=== PATIENT | female | born 1940 | race Caucasian/White ===

== ENCOUNTER → 2018-10-16 15:52 | Outpatient (CLI) | payer MEDICARE, OTHER, SELFPAY ==
[2018-10-16 18:45] LABS: ALB/GLOB Ratio 1.2 RATIO (0.9-2.4); AST(SGOT) 16 U/L (15-37); Alanine Aminotransfer ALT/SGPT 19 U/L (13-56); Albumin, Serum 4.1 g/dL (3.2-5.0); Alkaline Phosphatase 57 U/L (45-117); Anion Gap 3 (5-15); BUN 21 mg/dL (7-18); BUN/Creat Ratio 22.6 RATIO (10-20); Calcium,Total 9.2 mg/dL (8.5-10.1); Chloride 104 mmol/L (98-107); Cholesterol 156 mg/dL (200); Creatinine, Serum 0.93 mg/dL (0.55-1.02); EST Glomerular Filtration Rate 62 mL/min (>60); Est Glom Filt Rate - Afr Amer 76 mL/min (>60); Globulin 3.5 g/dL (2.2-4.2); Glucose 99 mg/dL (74-106); High Density Lipoprotein 49 mg/dL; Potassium 4.4 mmol/L (3.5-5.1); Protein, Total 7.6 g/dL (6.4-8.2); Sodium Level 139 mmol/L (136-145); Thyroid Stim Hormone (TSH) 1.17 uIU/mL (0.358-3.74); Triglycerides 237 mg/dL; Very Low Density Lipoprotein 47 mg/dL (5-40)
== END ==
PROVIDERS: Family Provider Family Medicine; PCP Family Medicine; Referring Provider Family Medicine; Visit Provider Family Medicine
DX: I10 Essential (primary) hypertension (principal); E03.9 Hypothyroidism, unspecified
CPT/HCPCS: 36415; 80053; 80061; 84443

== ENCOUNTER 2019-09-12 14:03 | Emergency (ER) | payer MEDICARE, OTHER, SELFPAY ==
[2019-09-12 14:03] VITALS: BP 157/89; PULSE 79; RESP 16; TEMP 36.8; O2SAT 98; BMI 33.3
--- NOTE | 2019-09-12 14:33 | RAD_ITS ---
STUDY: X-RAY - LUMBAR SPINE REASON FOR EXAM: Female, 78 years old. POSTERIOR RIGHT HIP AND LBP S/P FALL DOWN STAIRS LAST NIGHT TECHNIQUE: 3 view(s) of the lumbar spine were obtained. COMPARISON: None FINDINGS: Normal lumbar lordosis. Mild dextroscoliosis of the lumbar spine. There is a normal alignment of the vertebrae. Normal vertebral bodies and endplates. Moderate L5-S1 disc space height narrowing. Normal remaining lumbar disc space heights. Dense vascular calcifications along the abdominal aorta. Right metallic hip arthroplasty. Degenerative osteophytosis of the left hip joint space. RAD/Lumbar Spine 2 or 3 Views IMPRESSION: 1. No acute fracture or acute osseous abnormality of the lumbar spine. 2. Right metallic hip arthroplasty. 3. 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 Electronically Signed: Johnny Her MD at 15:33 EDT , Service support ,
--- NOTE | 2019-09-12 15:05 | RAD_ITS ---
STUDY: X-RAY - PELVIS AND RIGHT HIP REASON FOR EXAM: Female, 78 years old. POSTERIOR RIGHT HIP AND LBP S/P FALL DOWN STAIRS LAST NIGHT TECHNIQUE: 3 views of the pelvis and hip. COMPARISON: November 10, 2012 FINDINGS: There is a normal bowel gas pattern. Normal visualized soft tissue structures. There is diffuse demineralization of the osseous structures. Normal bilateral iliac wings, sacroiliac joints and visualized sacrum. Normal bilateral superior and inferior pubic rami. Normal pubic symphysis. Normal bilateral ischial tuberosities. There is right hip replacement. Alignment is near-anatomic. The appearance is stable. RAD/HIP, UNI W/ Pelvis 2-3 Views IMPRESSION: Stable right hip replacement. No fracture seen. Electronically Signed: Cj Grant MD at 15:32 EDT , Service support ,
--- NOTE | 2019-09-12 16:12 | ED.VISSUMM ---
- ER Visit Summary Date of Service: 09/12/19 Chief Complaint: Fall History of Present Illness: The patient is a 78 F who presents after a fall that occurred last night. Patient states she was going up some steps when she fell and went through the railing. Patient states she fell approximately 4 steps. Patient states she landed on her right hip and low back. Patient states the pain is constant aching but sharp at times. Patient states her pain is worse with ambulation. Patient states she has been using heat and cold with some improvement. Patient denies any radiation of the pain. Patient denies any bowel or bladder changes. Patient denies any saddle anesthesia. Physical Examination: Vital signs are stable. Patient is afebrile. Patient is in no acute distress. Musculoskeletal exam reveals tenderness and spasm of the right lumbar paraspinal muscles. There is some mild midline tenderness. There is also tenderness over the sacroiliac area and posterior iliac crest. There is no bony crepitance or step-off. Range of motion was slightly limited in all motions of the lumbar spine and right hip secondary to pain. Strength is 5/5 bilaterally in the upper and lower extremities. There are no sensory deficits noted. Pedal pulses are equal bilaterally. Abdomen is soft. Bowel sounds are normal. There is no tenderness. Test Results: X-rays of the lumbar spine and right hip were obtained. There is no acute fracture. There are some degenerative changes of the lumbar spine. These were interpreted by the radiologist and myself. Emergency Department Course and Treatment: Patient was advised of her findings. Patient was feeling better on reevaluation. Patient was instructed to use ice to the area. Patient was instructed to take Tylenol or ibuprofen as needed for pain. Patient was instructed to follow-up with her primary care physician in 5 to 7 days. Patient understood and was agreeable with the plan. All questions were answered. Disposition: Discharge home Impression: 1. Right hip contusion 2. Lumbosacral strain This note was generated with [employer] dictation software. It may contain incorrect words, spelling, and punctuation that were not noted in review of the chart prior to signing ED Disposition - Plan for ED Patient: Disposition: Home or Assisted Living Diagnosis: Contusion of right hip, initial encounter, Lumbosacral strain Instructions: ED LUMBAR SPRAIN/STRAIN, ED SOFT TISSUE CONTUSION Referrals: Diallo Ingram MD [Primary Care Provider] - 5-7 Days
[2019-09-12 16:27] VITALS: BP 147/76; PULSE 72; RESP 17; O2SAT 95
== END 2019-09-12 16:27 | disposition home or self-care (01) ==
PROVIDERS: Emergency Provider Emergency Medicine; PCP Family Medicine
DX: S70.01XA Contusion of right hip, initial encounter (principal); S39.012A Strain of muscle, fascia and tendon of lower back, initial encounter; W10.9XXA Fall (on) (from) unspecified stairs and steps, initial encounter; Y93.9 Activity, unspecified; Y99.9 Unspecified external cause status; Z96.641 Presence of right artificial hip joint; Z79.899 Other long term (current) drug therapy
CPT/HCPCS: 72100; 73502; 99282

== ENCOUNTER → 2020-08-19 08:11 | Outpatient (CLI) | payer MEDICARE, OTHER, SELFPAY ==
[2020-08-19 10:50] LABS: Anion Gap 5 (5-15); BUN 22 mg/dL (7-18); Calcium,Total 9.2 mg/dL (8.5-10.1); Chloride 104 mmol/L (98-107); Cholesterol 171 mg/dL (200); Creatinine, Serum 1.05 mg/dL (0.55-1.02); EST Glomerular Filtration Rate 54 mL/min (>60); Est Glom Filt Rate - Afr Amer 65 mL/min (>60); Free T3 1.7 pg/mL (2.18-3.98); Glucose 123 mg/dL (74-106); High Density Lipoprotein 46 mg/dL; Sodium Level 139 mmol/L (136-145); T4 Free Direct 1.05 ng/dL (0.76-1.46); Thyroid Stim Hormone (TSH) 1.39 uIU/mL (0.358-3.74); Triglycerides 266 mg/dL; Very Low Density Lipoprotein 53 mg/dL (5-40)
== END ==
PROVIDERS: PCP Family Medicine; Referring Provider Family Medicine; Visit Provider Family Medicine
DX: I10 Essential (primary) hypertension (principal); E03.9 Hypothyroidism, unspecified
CPT/HCPCS: 36415; 80048; 80061; 84439; 84443; 84481

== ENCOUNTER → 2021-02-20 10:51 | Outpatient (CLI) | payer MEDICARE, OTHER, SELFPAY ==
[2021-02-20 12:57] LABS: Anion Gap 7 (5-15); BUN 20 mg/dL (7-18); BUN/Creat Ratio 21.1 RATIO (10-20); Chloride 103 mmol/L (98-107); Cholesterol 191 mg/dL (200); Creatinine, Serum 0.95 mg/dL (0.55-1.02); EST Glomerular Filtration Rate 61 mL/min (>60); Est Glom Filt Rate - Afr Amer 74 mL/min (>60); Free T3 2.1 pg/mL (2.18-3.98); Glucose 126 mg/dL (74-106); High Density Lipoprotein 49 mg/dL; Potassium 4.6 mmol/L (3.5-5.1); Sodium Level 139 mmol/L (136-145); Thyroid Stim Hormone (TSH) 1.03 uIU/mL (0.358-3.74); Triglycerides 299 mg/dL; Very Low Density Lipoprotein 60 mg/dL (5-40)
== END ==
PROVIDERS: PCP Family Medicine; Referring Provider Family Medicine; Visit Provider Family Medicine
DX: I10 Essential (primary) hypertension (principal); E03.9 Hypothyroidism, unspecified
CPT/HCPCS: 36415; 80048; 80061; 84443; 84481

== ENCOUNTER → 2022-11-22 | Outpatient (CLI) | payer MEDICARE, OTHER, SELFPAY ==
[2022-11-22 12:04] LABS: Anion Gap 6 (5-15); BUN 21 mg/dL (7-18); BUN/Creat Ratio 26.5 RATIO (10-20); Calcium,Total 9.7 mg/dL (8.5-10.1); Chloride 107 mmol/L (98-107); Cholesterol 123 mg/dL (200); Creatinine, Serum 0.79 mg/dL (0.55-1.02); EST Glomerular Filtration Rate 74 mL/min (>60); Est Glom Filt Rate - Afr Amer 90 mL/min (>60); Free T3 2.9 pg/mL (2.18-3.98); Glucose 115 mg/dL (74-106); High Density Lipoprotein 58 mg/dL; Potassium 4.1 mmol/L (3.5-5.1); Sodium Level 140 mmol/L (136-145); Thyroid Stim Hormone (TSH) < 0.01 uIU/mL (0.358-3.74); Triglycerides 67 mg/dL; Very Low Density Lipoprotein 13 mg/dL (5-40)
== END | disposition home or self-care (01) ==
LOC: MFPLAB 08:04
PROVIDERS: PCP Family Medicine; Visit Provider Family Medicine
DX: I10 Essential (primary) hypertension (principal); E03.9 Hypothyroidism, unspecified
CPT/HCPCS: 36415; 80048; 80061; 84439; 84443; 84481

== ENCOUNTER → 2023-07-18 | Outpatient (CLI) | payer MEDICARE, OTHER, SELFPAY ==
[2023-07-18 11:06] LABS: AST(SGOT) 19 U/L (15-37); Alanine Aminotransfer ALT/SGPT 23 U/L (13-56); Albumin, Serum 3.8 g/dL (3.2-5.0); Alkaline Phosphatase 64 U/L (45-117); Anion Gap 3 (5-15); BUN 21 mg/dL (7-18); BUN/Creat Ratio 21.2 RATIO (10-20); Calcium,Total 9.4 mg/dL (8.5-10.1); Chloride 103 mmol/L (98-107); Cholesterol 150 mg/dL (200); Creatinine, Serum 0.99 mg/dL (0.55-1.02); EST Glomerular Filtration Rate 57 mL/min (>60); Est Glom Filt Rate - Afr Amer 69 mL/min (>60); Free T3 1.8 pg/mL (2.18-3.98); Globulin 3.9 g/dL (2.2-4.2); Glucose 109 mg/dL (74-106); High Density Lipoprotein 61 mg/dL; Potassium 4.3 mmol/L (3.5-5.1); Protein, Total 7.7 g/dL (6.4-8.2); Sodium Level 137 mmol/L (136-145); T4 Free Direct 0.84 ng/dL (0.76-1.46); Thyroid Stim Hormone (TSH) 4.33 uIU/mL (0.358-3.74); Triglycerides 189 mg/dL; Very Low Density Lipoprotein 38 mg/dL (5-40)
== END | disposition home or self-care (01) ==
LOC: MFPLAB 08:52
PROVIDERS: PCP Family Medicine; Visit Provider Family Medicine
DX: E03.9 Hypothyroidism, unspecified (principal); I10 Essential (primary) hypertension
CPT/HCPCS: 36415; 80053; 80061; 84439; 84443; 84481

== ENCOUNTER → 2023-10-17 | Outpatient (CLI) | payer MEDICARE, OTHER, SELFPAY ==
--- NOTE | 2023-10-17 10:42 | RAD_ITS ---
STUDY: X-RAY - PELVIS AND LEFT HIP REASON FOR EXAM: Female, 82 years old. PAIN TECHNIQUE: 3 views of the pelvis and left hip. COMPARISON: None. FINDINGS: There is a non-specific bowel gas pattern. Normal visualized soft tissue structures. Normal bilateral iliac wings, sacroiliac joints and visualized sacrum. Normal bilateral superior and inferior pubic rami. There is mild pubic symphysis arthrosis. Normal bilateral ischial tuberosities. There are osteoarthritic changes of the left femoral head with marginal osteophyte formation. There is mild osteoarthritic spur formation of the left acetabular rim. Intact left hip joint. There is no demonstrated acute fracture. There is a right hip arthroplasty, with no periprosthetic fracture. RAD/HIP, UNI W/ Pelvis 2-3 Views IMPRESSION: Degenerative arthrosis of the left hip joint. No demonstrated acute fracture. Right hip arthroplasty, with no periprosthetic fracture. Electronically Signed: Bulmaro Panchal MD at 15:30 EDT ,
--- NOTE | 2023-10-17 10:43 | RAD_ITS ---
STUDY: X-RAY - LEFT KNEE REASON FOR EXAM: Female, 82 years old. PAIN TECHNIQUE: 4 views of the left knee. COMPARISON: None. FINDINGS: Normal visualized distal femur. Normal visualized proximal tibia and fibula. Normal proximal tibiofibular articulation. There is no demonstrated fracture. Normal medial femorotibial compartment. Normal lateral femorotibial compartment. Normal patellofemoral articulation. There is a tiny joint effusion. The soft tissue structures are unremarkable. RAD/Knee 4 or More Views IMPRESSION: Tiny joint effusion. No demonstrated fracture. Electronically Signed: Bulmaro Panchal MD at 14:12 EDT ,
== END | disposition home or self-care (01) ==
PROVIDERS: PCP Family Medicine; Referring Provider Family Medicine; Visit Provider Family Medicine
DX: M25.552 Pain in left hip (principal); M25.562 Pain in left knee
CPT/HCPCS: 73502; 73564

== ENCOUNTER → 2024-02-19 | Outpatient (CLI) | payer MEDICARE, OTHER, SELFPAY ==
[2024-02-19 13:12] LABS: Anion Gap 5 (5-15); BUN 20 mg/dL (7-18); Calcium,Total 9.5 mg/dL (8.5-10.1); Chloride 104 mmol/L (98-107); Cholesterol 156 mg/dL (200); EST Glomerular Filtration Rate 57 mL/min (>60); Est Glom Filt Rate - Afr Amer 68 mL/min (>60); Glucose 111 mg/dL (74-106); High Density Lipoprotein 52 mg/dL; Potassium 4.2 mmol/L (3.5-5.1); Sodium Level 139 mmol/L (136-145); T4 Free Direct 0.96 ng/dL (0.76-1.46); Triglycerides 251 mg/dL; Very Low Density Lipoprotein 50 mg/dL (5-40)
== END | disposition home or self-care (01) ==
LOC: MFPLAB 10:57
PROVIDERS: PCP Family Medicine; Visit Provider Family Medicine
DX: E03.9 Hypothyroidism, unspecified (principal); I10 Essential (primary) hypertension
CPT/HCPCS: 36415; 80048; 80061; 84439; 84443; 84481

== ENCOUNTER 2024-03-25 13:18 | Emergency (ER) | payer MEDICARE, OTHER, SELFPAY ==
[2024-03-25 13:19] VITALS: BP 113/57; PULSE 67; RESP 16; TEMP 36.4; O2SAT 94; BMI 33.0
--- NOTE | 2024-03-25 13:26 | EKG12_ITS ---
Test Reason : Blood Pressure : / mmHG Vent. Rate : 061 BPM Atrial Rate : 061 BPM P-R Int : 178 ms QRS Dur : 156 ms QT Int : 464 ms P-R-T Axes : 007 -81 -10 degrees QTc Int : 467 ms Normal sinus rhythm Left axis deviation Right bundle branch block Abnormal ECG Confirmed by Juno Zaragoza ([id number]), shoe caser ROB PARKER ([id number]) on 03/27/2024 1:29:04 PM Referred By: Confirmed By:Juno Zaragoza
--- NOTE | 2024-03-25 13:36 | RAD_ITS ---
INDICATION: Chest/epigastric pain EXAMINATION/TECHNIQUE: X-RAY - XR Chest 2 Views COMPARISON: Prior study dated: FINDINGS: LINES/DEVICES: None. LUNGS: Mild linear atelectasis or scarring in the lingula. No focal consolidation is seen. No evidence of pleural effusions. MEDIASTINUM AND CARDIOVASCULAR STRUCTURES: Normal cardiac silhouette. Atherosclerotic calcifications and tortuosity of the thoracic aorta. BONES AND SOFT TISSUES: Degenerative changes of the thoracic spine. RAD/Chest PA and Lateral IMPRESSION: No radiographic evidence of acute cardiopulmonary disease. Electronically Signed: Layton Jaimes MD at 14:03 EDT ,
[2024-03-25 13:57] LABS: Troponin-I HS (w/2H Reflex) 6 pg/mL (3.0-54.0)
[2024-03-25 14:19] VITALS: BP 109/54; PULSE 61; RESP 20; O2SAT 95
--- NOTE | 2024-03-25 14:36 | EDS_ITS ---
HPI History of Present Illness Chief Complaint: Chest Pain Detail of Chief Complaint: Reported xiphoid/epigastric pain while eating Informant: EMS Limited: dementia Onset/Context/Timing Onset: - (Patient was unaware that she had pain. She states they put me in a vehicle and sent me here.) Activity at onset: sudden Timing: Intermittent Quality: Positive for - (Pain per EMS) Location: - (Subxiphoid region) Current Severity: Gone Maximum Severity: Severe Worsened By: Nothing Relieved By: Nothing Associated Symptoms: Positive for Diaphoresis; Negative for Nausea, Vomiting, Dyspnea, Cough, Fever, Lightheadedness, Acid Reflux or Palpitations Narrative Narrative: Patient is an 83-year-old woman with past medical history of hypertension and hypercholesterolemia who presents with severe subxiphoid discomfort. She was diaphoretic. She appeared distressed when paramedics arrived. The pain resolved on its own. Patient has significant dementia that she is unable to contribute with regards to history. Prior Similar Symptoms: - (Unknown) Recent Illness/Hospitalization: No CVD Risk Factors: Positive for Hypertension and Hypercholesterolemia; Negative for Diabetes or Smoking PE Risk Factors: Positive for - (Unknown) TAD Risk Factors: Positive for Hypertension [facility] Medical History (Updated 03/25/24 @ 16:[address] Joo Borden MD) Dementia Home Medications ?Medication ?Instructions ?Recorded ?Last Taken ?Type amlodipine 5 mg tablet 5 mg PO DAILY 09/12/19 03/25/24 History lovastatin 20 mg tablet 20 mg PO DAILY 09/12/19 03/24/24 History dicyclomine 20 mg tablet 20 mg PO TID 03/25/24 03/25/24 History donepezil 10 mg tablet 20 mg PO DAILY 03/25/24 03/24/24 History levothyroxine 75 mcg tablet 75 mcg PO DAILY 03/25/24 03/24/24 History meloxicam 15 mg tablet 15 mg PO DAILY 03/25/24 03/24/24 History memantine 5 mg tablet 5 mg PO BID 03/25/24 03/24/24 History Allergy/AdvReac Type Severity Reaction Status Date / Time Sulfa (Sulfonamide Allergy Rash Verified 09/12/19 14:04 Antibiotics) adhesive tape AdvReac Rash Verified 09/12/19 14:04 Social History Smoking Status: Never smoker ROS ROS ED Review of Systems ROS Unobtainable: due to mental status Cardiovascular Cardiovascular: Reports as per HPI EXAM Physical Exam Const Vital Signs: 03/25/24 13:19 03/25/24 13:23 03/25/24 14:19 Temperature 97.6 F L Temperature Source Temporal Pulse Rate 67 61 Respiratory Rate 16 20 H Respiratory Effort Normal Blood Pressure 113/57 L 109/54 L Blood Pressure Mean 75 72 Pulse Ox 94 95 Oxygen Delivery Method Room Air 03/25/24 15:00 Temperature Temperature Source Pulse Rate 73 Respiratory Rate 20 H Respiratory Effort Blood Pressure 117/61 Blood Pressure Mean 79 Pulse Ox 96 Oxygen Delivery Method Room Air Positive well nourished, well developed and obese General Appearance ED: well developed and NAD; Negative for pallor Nutritional Appearance: obese HEENT Reports TM's clear and moist mucous membranes normocephalic Tympanic Membrane ED: Yes TM's clear Eyes PERRL and EOMs intact bilaterally Neck no lymphadenopathy, supple and no JVD Chest Wall inspection of chest normal and palpation of chest normal Resp normal respiratory effort and clear to auscultation bilaterally Cardio regular rate, regular rhythm, S1 normal heart sound, S2 normal heart sound and no murmurs GI normal to inspection, nondistended, normoactive bowel sounds, soft to palpation, non-tender, non-distended and no masses; Negative for hepatosplenomegaly Back/Spine no CVA tenderness and no thoracic nor lumbar tenderness Extremity normal to inspection General Extremety ED: Negative for pulses abnormal or tenderness General Extremity: Negative for pulses abnormal Neuro No oriented x3, CN's II-XII intact bilaterally and no sensory deficits noted Sensorium / Orientation: awake Psych mental status grossly normal Skin no rashes or lesions noted and no wounds General Skin Exam: Negative for jaundice or pallor MDM MDM MDM Narrative Medical decision making narrative: Differential diagnosis cardiac versus noncardiac. To rule out noncardiac will obtain EKG, troponin with 2-hour troponin. Suspect this is due to esophageal pathology since this occurred while eating. Since she is pain-free at this time no intervention was undertaken. Lab Data Attestation: I reviewed the patient's lab results. Lab results narrative: First troponin is normal, 6. Labs: Laboratory Results - last 24 hr 03/25/24 03/25/24 13:31 15:39 Troponin I High Sens 6 5 2-hour troponin is 5 with a delta of -1. Plan is to discharge to home. Radiography Chest X-Ray - ED: 2 View and Read by ED Physician (Independently read and interpreted by me as negative for any acute pathology. Cardiac silhouette size normal. Lung parenchyma normal. Hilum normal.) Diagnostic Testing: Clinical Impression(s) from Imaging Studies Chest X-Ray 03/25/24 13:36 IMPRESSION: No radiographic evidence of acute cardiopulmonary disease. Electronically Signed: Layton Jaimes MD at 14:03 EDT , EKG Initial EKG: Interpretation: Sinus Rhythm (Rate is 61. Eugene to the left. Parables 170 ms. Cures duration is prolonged 156 ms and QRS morphology consistent with right bundle branch block. QT duration 464 ms.) Discharge Plan Triage Chief Complaint: Chest Pain ED Provider: Joo Borden Dx/Rx/DC Orders Clinical Impression: Acute epigastric pain, Dementia, History of hypothyroidism, History of hypertension Instructions: ED Epigastric Pain Uncertain Cause Prescriptions: No Action amlodipine 5 MG tablet 5 mg PO DAILY lovastatin 20 MG tablet 20 mg PO DAILY donepezil 10 mg tablet 20 mg PO DAILY dicyclomine 20 mg tablet 20 mg PO TID meloxicam 15 mg tablet 15 mg PO DAILY levothyroxine 75 mcg tablet 75 mcg PO DAILY memantine 5 mg tablet 5 mg PO BID Primary Care Provider: Diallo Ingram Referrals: Diallo Ingram MD [Primary Care Provider] - As Needed Print Language: Mauritanian Disposition Disposition: Home, Self Care
[2024-03-25 15:00] VITALS: BP 117/61; PULSE 73; RESP 20; O2SAT 96
[2024-03-25 15:35] LABS: Reflex Troponin-HS? (from REC) Y
[2024-03-25 16:00] VITALS: BP 125/68
[2024-03-25 16:00] LABS: Troponin-I HS 5 pg/mL (3.0-54.0)
--- NOTE | 2024-03-25 16:10 | ED.RN ---
Dr. Borden bedside talking to family and patient
[2024-03-25 16:11] VITALS: BP 125/68; PULSE 73; RESP 20; TEMP 36.4; O2SAT 96
== END 2024-03-25 16:18 | disposition home or self-care (01) ==
PROVIDERS: Emergency Provider Emergency Medicine; PCP Family Medicine; Visit Provider Emergency Medicine
DX: R10.13 Epigastric pain (principal); F03.90 Unspecified dementia, unspecified severity, without behavioral disturbance, psychotic disturbance, mood disturbance, and anxiety; I10 Essential (primary) hypertension; E78.00 Pure hypercholesterolemia, unspecified; Z79.890 Hormone replacement therapy; Z79.899 Other long term (current) drug therapy
CPT/HCPCS: 71046; 84484; 93005; 99284; A4216

== ENCOUNTER → 2024-03-27 | Outpatient (CLI) | payer MEDICARE, OTHER, SELFPAY ==
[2024-03-27 11:30] LABS: ALB/GLOB Ratio 0.9 RATIO (0.9-2.4); AST(SGOT) 21 U/L (15-37); Alanine Aminotransfer ALT/SGPT 19 U/L (13-56); Albumin, Serum 3.5 g/dL (3.2-5.0); Alkaline Phosphatase 68 U/L (45-117); Anion Gap 3 (5-15); BUN 19 mg/dL (7-18); Calcium,Total 9.5 mg/dL (8.5-10.1); Chloride 106 mmol/L (98-107); EST Glomerular Filtration Rate 57 mL/min (>60); Est Glom Filt Rate - Afr Amer 68 mL/min (>60); Glucose 111 mg/dL (74-106); Potassium 3.9 mmol/L (3.5-5.1); Protein, Total 7.5 g/dL (6.4-8.2); Sodium Level 139 mmol/L (136-145)
== END | disposition home or self-care (01) ==
LOC: MTLAB 07:37
PROVIDERS: PCP Family Medicine; Referring Provider Family Medicine; Visit Provider Family Medicine
DX: R63.0 Anorexia (principal)
CPT/HCPCS: 36415; 80053

== ENCOUNTER → 2024-08-24 | Outpatient (CLI) | payer MEDICARE, OTHER, SELFPAY ==
[2024-08-24 13:04] LABS: ALB/GLOB Ratio 1.2 RATIO (0.9-2.4); AST(SGOT) 22 U/L (<=31); Alanine Aminotransfer ALT/SGPT 13 U/L (<=34); Albumin, Serum 4.2 g/dL (3.4-4.8); Alkaline Phosphatase 80 U/L (35-104); Anion Gap 10 (5-15); BUN 21 mg/dL (4-19); BUN/Creat Ratio 22.2 RATIO (10-20); Calcium,Total 9.7 mg/dL (7.6-11.0); Carbon Dioxide 27.7 mmol/L (21.0-32.0); Chloride 104 mmol/L (98-108); Creatinine, Serum 0.95 mg/dL (0.70-1.20); EST Glomerular Filtration Rate 60 (>60); Free T3 2.4 pg/mL (2.18-3.98); Globulin 3.4 g/dL (2.2-4.2); Glucose 125 mg/dL (70-99); Protein, Total 7.5 g/dL (5.9-8.4); Sodium Level 141 mmol/L (133-145); Total Bilirubin 0.39 mg/dL (0.00-1.30)
[2024-08-24 18:32] LABS: Cholesterol 184 mg/dL (<=200); High Density Lipoprotein 61 mg/dL; Low Density Lipoprotein Calc. 90 mg/dL; Triglycerides 164 mg/dL; Very Low Density Lipoprotein 33 mg/dL (5-40); cholesterol:hdl ratio screen 3.03
== END | disposition home or self-care (01) ==
LOC: MTLAB 07:18
PROVIDERS: PCP Family Medicine; Referring Provider Family Medicine; Visit Provider Family Medicine
DX: I10 Essential (primary) hypertension (principal); E03.9 Hypothyroidism, unspecified
CPT/HCPCS: 36415; 80053; 80061; 84439; 84443; 84481

== ENCOUNTER → 2024-12-07 | Outpatient (REF) | payer MEDICARE, OTHER, SELFPAY ==
[2024-12-08 09:50] LABS: Bacteria 0 SEEN /hpf (None Seen); Mucous, Urine 0 SEEN /hpf (<or=2+)
[2024-12-08 10:54] LABS: Color, Urine Yellow (Yellow); Glucose, Dipstick Normal (Normal); Ketone-Dipstick 5 mg/dl (Negative); Leukocyte Esterase-Dipstick 500 /ul (Negative); Nitrite-Dipstick Negative (Negative); Occult Blood-Urine 10 /ul (Negative); Protein-Dipstick 15 mg/dl (Negative); Urine Bilirubin Dipstick Negative (Negative); Urine Clarity Sl. Cloudy (Clear); Urine Urobilinogen Normal (Normal)
[2024-12-08 12:24] LABS: Red Blood Cells-Urine 0-5 SEEN /hpf (0-5); Squamous Epithelial Cells - UA 0-5 SEEN /hpf (5-10); White Blood Cells 5-10 SEEN /hpf (0-5)
== END ==
LOC: OLS.BROOKB 02:00
PROVIDERS: PCP Family Medicine; Visit Provider Family Medicine
DX: N39.0 Urinary tract infection, site not specified (principal)
CPT/HCPCS: 81001; 87086

== ENCOUNTER 2024-12-26 07:21 | Emergency (ER) | payer MEDICARE, OTHER, SELFPAY ==
[2024-12-26] VITALS (11 sets, daily range): BP systolic 114–149; BP diastolic 08–111; PULSE 75–91; RESP 16–24; TEMP 36.2–37; O2SAT 94–100; BMI 30.2
--- NOTE | 2024-12-26 07:28 | CT_ITS ---
EXAM: BRAIN/HEAD WITHOUT CONTRAST CLINICAL HISTORY: 84 y/o F with HEAD TRAUMA. COMPARISON: None. TECHNIQUE: Routine CT imaging of the head without IV contrast. Additional multiplanar reformats were obtained. Dose reduction techniques were used including intermediate exposure control (AEC),iterative reconstruction technique, and/or mA and/or KV dose adjustments based on patient's size. FINDINGS: Visualization is limited by motion artifact. Moderate generalized cerebral volume loss with concordant prominence of the ventricles and subarachnoid spaces. Moderate patchy supratentorial white matter hypodensities. No acute intracranial hemorrhage or herniation. The magaña-white matter interfaces are otherwise maintained. The orbits, visualized paranasal sinuses and mastoids are unremarkable. No obvious acute calvarial fracture. Large hematoma/laceration along the right superolateral orbital wall. CT/Brain/Head without Contrast IMPRESSION: 1. No acute intracranial finding. 2. Large hematoma/laceration along the right superolateral orbital wall. Reading Location: [id number]
--- NOTE | 2024-12-26 07:28 | ED.VIS.FALL ---
HPI HPI - Fall History of Present Illness Chief Complaint: Fall Informant: patient Occured/Mechanism Occurred: Today Usually ambulates: Without assistance Pain/Injury Pain Location: head Narrative Narrative: 84-year-old female history of dementia, hypertension. Currently resides in [facility] with the memory unit. Patient is a very limited informant due to her dementia. She basically says ow. Reportedly patient was found in the hallway on the floor at the extended-care facility. With contusion to her right forehead and upper eyelid and brow. They believe she fell sometime this morning. She is reportedly not on blood thinners. Prior similar symptoms: No Recent Illness/Hospitalization: No PFSH PFSH Medical History Anorexia GERD (gastroesophageal reflux disease) HTN (hypertension) Hypothyroidism Alzheimer disease Dementia Home Medications ?Medication ?Instructions ?Recorded ?Last Taken ?Type amlodipine 5 mg tablet 5 mg PO DAILY 09/12/19 03/25/24 History lovastatin 20 mg tablet 20 mg PO DAILY 09/12/19 03/24/24 History dicyclomine 20 mg tablet 20 mg PO BID 03/25/24 03/25/24 History levothyroxine 75 mcg tablet 75 mcg PO DAILY 03/25/24 03/24/24 History meloxicam 15 mg tablet 15 mg PO DAILY 03/25/24 03/24/24 History mirtazapine 15 mg tablet 15 mg PO QHS 12/26/24 Unknown History omeprazole 20 mg capsule,delayed 20 mg PO DAILY 12/26/24 Unknown History release polyethylene glycol 3350 17 17 g PO QHS 12/26/24 Unknown History gram/dose oral powder Allergy/AdvReac Type Severity Reaction Status Date / Time Sulfa (Sulfonamide Allergy Rash Verified 12/26/24 07:28 Antibiotics) adhesive tape AdvReac Rash Verified 12/26/24 07:28 Social History Smoking Status: Never smoker ROS ROS ED ROS Narrative Unknown due to patient's dementia. Review of Systems ROS Unobtainable: due to mental condition EXAM Physical Exam Narrative Exam Narrative: 84-year-old female sitting upright in bed. Vital signs are stable afebrile. Currently there is no family present. H EENT exam pupils round reactive light. Her right forehead eyebrow upper lid there is swelling from a contusion there is dried blood but does not appear to be a laceration needs to be repaired. There is no active bleeding. Pupils are equal and symmetrical 2 to 3 mm. Dentition intact. There is no other signs of trauma to her face or scalp. C-spine and neck are nontender. Lungs are clear. Heart regular rhythm rate about 80 no murmur. Chest wall and ribs are nontender. There is no signs of trauma. No bruising or crepitance. Abdomen is soft and nontender. Pelvic girdle is intact. There is no shortening or rotation to either hip. Upper extremities are nontender no deformity. She does not do hhas strength. Lower extremities are nontender with no deformity. She does do dorsi and plantarflexion. Neurologically she is awake. She will open her eyes. She will follow limited commands. She is a very limited informant. There does not appear to be any focal motor deficits. Const Vital Signs: 12/26/24 07:22 12/26/24 08:21 12/26/24 09:00 Temperature 97.2 F L Temperature Source Axillary Pulse Rate 84 84 86 Respiratory Rate 24 H 16 Blood Pressure 148/74 H 149/88 H 127/98 H Blood Pressure Mean 98 108 107 Pulse Ox 100 98 Oxygen Delivery Method Room Air Room Air 12/26/24 10:00 12/26/24 11:00 Temperature Temperature Source Pulse Rate 75 79 Respiratory Rate 17 Blood Pressure 119/08 L Blood Pressure Mean 45 Pulse Ox 99 Oxygen Delivery Method Room Air Positive well nourished and well developed; Negative for cachectic, contractures or unkempt General Appearance ED: well developed and NAD; Negative for unkempt, cachectic or contractures Nutritional Appearance: Negative for cachectic HEENT Reports normocephalic trauma, contusion, hematoma and tenderness Eyes PERRL and EOMs intact bilaterally General Eye ED: Negative for pale conjunctiva or scleral icterus Neck full ROM and no lymphadenopathy General: Negative for tenderness Chest Wall inspection of chest normal and palpation of chest normal Resp normal respiratory effort, no retractions and clear to auscultation bilaterally Cardio regular rate, regular rhythm, S1 normal heart sound, S2 normal heart sound and no murmurs GI non-tender, non-distended and no masses Inspection: Negative for abdominal distention Auscultation: normoactive bowel sounds Palpation: soft; Negative for guarding or rebound tenderness present Back/Spine no CVA tenderness General Back: Negative for CVA tenderness Cervical Spine: Negative for cervical spine tenderness Lumbar Spine / Lower Back: Negative for lumbar spinal tenderness Neuro No oriented x3, CN's II-XII intact bilaterally, moves all extremities and no focal motor deficits Neuro Narrative: History of dementia. Sensorium / Orientation: alert and confused Psych mental status grossly normal Appearance: Negative for unkempt Skin Skin Narrative: Contusion right forehead involving the eyebrow and upper lid. Dried blood but no significant laceration needs repaired. Lesions: no lesions Rashes: no rashes MDM MDM MDM Narrative Medical decision making narrative: 84-year-old female fell is a significant head injury. CT will be obtained. My understanding is she is DNR comfort care so even if there is a bleed and no believe he will be any intervention. Going for diagnostic purposes. Wound to be cleaned and dressed. Repeat exam patient doing well at 10:50 PM. There are 2 gentleman at bedside or family members they wanted me to check her right shoulder and right hip and obtain x-rays to make sure they were not fractured clinically I do not think they are by happy to get the x-rays. Another family member also requested we do a urinalysis. History & Record Review Discussion w/independent historian: Patient Lab Data Attestation: I reviewed the patient's lab results. Lab results narrative: UA shows no nitrites. 10-25 white cells but no bacteria. No red cells. Will be sent for culture but not treated. Right hip x-ray shows a prosthetic hip possibly a superior pubic rami fracture might be old. I do not see it on prior films. Her prior hip prosthesis was done due to degenerative arthritis not a fracture. Right shoulder x-ray shows a humeral head fracture. I went over both films with the family. Patient is DNR. They do not want any aggressive measures due to her severe dementia. Labs: Laboratory Results - last 24 hr 12/26/24 11:13 Urine Color Yellow Urine Clarity Clear Urine pH 7.0 Ur Specific [place] 1.010 Urine Protein 15 H Urine Glucose (UA) Normal Urine Ketones 50 H Urine Occult Blood 10 H Urine Nitrite Negative Urine Bilirubin Negative Urine Urobilinogen Normal Ur Leukocyte Esterase 500 H Urine RBC 0-5 SEEN Urine WBC 10-25 SEEN Ur Squamous Epith Cells 0-5 SEEN Urine Bacteria 0 SEEN Urine Mucus 0 SEEN Radiography Diagnostic Testing: Clinical Impression(s) from Imaging Studies Brain CT 12/26/24 07:28 IMPRESSION: 1. No acute intracranial finding. 2. Large hematoma/laceration along the right superolateral orbital wall. Reading Location: [facility] Hip/Pelvis X-Ray 12/26/24 10:52 IMPRESSION: The right prosthetic hip device appears to be in satisfactory position without evidence of fracture or loosening. No acute fractures or dislocations are seen. Degenerative changes lower lumbar spine. Arthritic changes of the pubic symphysis. 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 Reading Location: [facility] Shoulder X-Ray 12/26/24 10:52 IMPRESSION: Comminuted displaced fracture of the right humeral head/ neck region as described above. 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 Reading Location: [facility] Right shoulder x-ray shows an acute right humeral head fracture. 2 views interpreted by myself. Right hip x-ray 3 views prosthetic right hip. Questionable superior pubic ramus fracture versus chronic changes. Procedures Lacerations Right forehead laceration repair with Dermabond.: Length: 0.5 in Depth: Skin Shape: Linear Laceration repair: Dermabond Comment: Right forehead eyebrow eyelid abrasion laceration. Dermabond to help with stop bleeding. Did not need suture repair there is no gaping. Discharge Plan Triage Chief Complaint: Fall ED Provider: Shawn Blackmon Dx/Rx/DC Orders Clinical Impression: Fall, CHI (closed head injury), Forehead laceration, Closed fracture of head of right humerus, Closed fracture of right superior pubic ramus, Dementia, DNR (do not resuscitate) Instructions: ED Head Injury (Adult), ED Fracture, Shoulder Prescriptions: No Action amlodipine 5 MG tablet 5 mg PO DAILY lovastatin 20 MG tablet 20 mg PO DAILY dicyclomine 20 mg tablet 20 mg PO BID meloxicam 15 mg tablet 15 mg PO DAILY levothyroxine 75 mcg tablet 75 mcg PO DAILY polyethylene glycol 3350 17 gram/dose powder 17 g PO QHS omeprazole 20 mg capsule,delayed release(DR/EC) 20 mg PO DAILY mirtazapine 15 mg tablet 15 mg PO QHS Primary Care Provider: Diallo Ingram Referrals: Diallo Ingram MD [Primary Care Provider] - 3-5 Days Activity Restrictions/Additional Instructions: Ice to the forehead contusion and swelling. There was a mild laceration to her right eyebrow area. That was Dermabond glued. Tylenol for any pain. Right humeral head fracture. Sling. Possible right superior pubic rami fracture. No treatment. Follow-up with Dr. Diallo Ingram. Print Language: Mauritian Disposition Disposition: Home, Self Care
--- OUTSIDE RECORDS SUMMARY | 2024-12-26 07:48 | XMS RPT_ITS | CCD ---
Author Organization [facility] Care Team Providers Care Test Center Manager Name Role Phone Nataly BALDERRAMA, Dr. Landrum Primary Care Provider Nataly BALDERRAMA, Dr. Landrum Attending Provider [phone] Nataly BALDERRAMA, Dr. Landrum Referring Provider Diallo Ingram Attending Unavailable Nataly, Diallo Primary Care Unavailable Diallo Ingram Referring Unavailable Diallo Ingram Primary Care Unavailable Borden, Joo Attending Unavailable Ingram Diallo FERNÁNDEZ Attending Unavailable Ingram, Diallo Primary Care Unavailable Nataly, Diallo Attending Unavailable Diallo Ingram Primary Care Unavailable Diallo Ingram Attending Unavailable Ingram, Diallo Primary Care Unavailable Diallo Ingram Referring Unavailable Allergies Allergy Classification Reported Allergen(s) Allergy Type Date of Onset Reaction(s) Facility (4 sources) Adhesive Tape; Translations: [adhesive tape] Propensity to adverse reactions 0 [facility] (3 sources) Sulfonamides (Antibiotic) Allergy to substance 0 [facility] (1 source) Sulfonamides (Antibiotic) Drug allergy (disorder) 0 [facility] Repository Medications Current Medications Medication Drug Class(es) Dates Sig (Normalized) Sig (Original) amLODIPine 5 mg oral tablet (3 sources) Dihydropyridine Calcium Channel Tayler Start: 09-12-2019 take 1 tablet by mouth once daily Amlodipine 5 MG tablet Active 5 mg PO DAILY September 12, 2019 12:00am dicyclomine hydrochloride 20 mg oral tablet (1 source) Anticholinergic Start: 03-25-2024 take 1 tablet by mouth three times daily Dicyclomine 20 mg tablet Active 20 mg PO THREE TIMES A DAY March 25, 2024 12:00am donepezil hydrochloride 10 mg oral tablet (1 source) Start: 03-25-2024 take 2 tablets by mouth once daily Donepezil 10 mg tablet Active 20 mg PO DAILY March 25, 2024 12:00am levothyroxine sodium 0.075 mg oral tablet (4 sources) l-Thyroxine Start: 03-25-2024 take 1 tablet by mouth once daily Levothyroxine 75 mcg tablet Active 75 ug PO DAILY March 25, 2024 12:00am Start: 09-12-2019 End: 03-25-2024 take 1 tablet by mouth once daily Levothyroxine 88 MCG tablet Discontinued 88 ug PO DAILY September 12, 2019 12:00am March 25, 2024 1:34pm lovastatin 20 mg oral tablet (3 sources) HMG-CoA Reductase Inhibitor Start: 09-12-2019 take 1 tablet by mouth once daily Lovastatin 20 MG tablet Active 20 mg PO DAILY September 12, 2019 12:00am meloxicam 15 mg oral tablet (1 source) Nonsteroidal Anti-inflammatory Drug Start: 03-25-2024 take 1 tablet by mouth once daily Meloxicam 15 mg tablet Active 15 mg PO DAILY March 25, 2024 12:00am memantine hydrochloride 5 mg oral tablet (1 source) O-ktgpmo-A-aspartat e Receptor Antagonist Start: 03-25-2024 take 1 tablet by mouth twice daily Memantine 5 mg tablet Active 5 mg PO TWICE A DAY March 25, 2024 12:00am Completed/Discontinued Medications Medication Drug Class(es) Dates Sig (Normalized) Sig (Original) benazepril hydrochloride 20 mg / hydroCHLOROthiazide 12.5 mg oral tablet (3 sources) Thiazide Diuretic, Angiotensin Converting Enzyme Inhibitor Start: 09-12-2019 End: 03-25-2024 Benazepril-Hydroc hlorothiazide 1 EACH tablet Discontinued 1 NMA PO DAILY September 12, 2019 12:00am March 25, 2024 1:32pm Start: 09-12-2019 Benazepril-Hyd rochlorothiazide Active 1 EACH PO DAILY September 11, 2019 11:00pm Problems Active Problems Problem Classification Problem Date Documented Da te Episodic/Chronic Abdominal pain (1 source) Epigastric pain; Translations: [Epigastric pain] 04-02-2024 Episodic Delirium, dementia, and amnestic and other cognitive disorders (1 source) Dementia; Translations: [Unspecified dementia without behavioral disturbance] 04-02-2024 Chronic Essential hypertension (1 source) Essential (primary) hypertension; Translations: [Essential (primary) hypertension] Onset: 08-29-2024 Chronic Other circulatory disease (1 source) H/O: hypertension; Translations: [Personal history of other diseases of the circulatory system] 04-02-2024 Episodic Other nutritional; endocrine; and metabolic disorders (1 source) H/O: hypothyroidism; Translations: [Personal history of other endocrine, nutritional and metabolic disease] 04-02-2024 Episodic Sprains and strains (3 sources) Lumbosacral strain; Translations: [Strain of muscle, fascia and tendon of lower back, initial encounter] 09-13-2019 Episodic Superficial injury; contusion (3 sources) Contusion of hip; Translations: [Contusion of right hip, initial encounter] 09-13-2019 Episodic Thyroid disorders (1 source) Hypothyroidism, unspecified; Translations: [Hypothyroidism, unspecified] Onset: 03-12-2024 Chronic Past or Other Problems Problem Classification Problem Date Documented Da te Episodic/Chronic Nonspecific chest pain (1 source) Chest pain, unspecified; Translations: [Chest pain, unspecified] Onset: 04-17-2024 Episodic Other nutritional; endocrine; and metabolic disorders (1 source) Anorexia; Translations: [Anorexia] Onset: 04-23-2024 Episodic Results Test Name Value Interpretation Reference Range Facility Anion gap in Serum or Plasma Ordered By: Diallo Ingram on 08-24-2024 Anion gap [Moles/Vol] 10 mmol/L - [facility] BUN/creatinine ratioOrdered By: Diallo Ingram on 08-24-2024 Urea nitrogen/Creatinine [Mass ratio] 22.2 mg/mg High 10- [facility] Bilirubin, totalOrdered By: Diallo Ingram on 08-24-2024 Bilirubin [Mass/Vol] 0.39 mg/dL 0.00-1.30 [facility] Calculated very low density lipoprotein (VLDL) cholesterol measurementOrdered By: Diallo Ingram on 08-24-2024 VLDL Cholesterol 33 mg/dL - [facility] Carbon dioxide, total [Moles /volume] in Central venous bloodOrdered By: Diallo Ingram on 08-24-2024 CO2 [Moles/Vol] 27.7 mmol/L 21.0-32.0 [facility] Chloride assayOrdered By: Matthew Ingram on 08-24-2024 Chloride [Moles/Vol] 104 mmol/L 98-108 [facility] Comprehensive Metabolic Prof ilon 08-24-2024 Albumin [Mass/Vol] 4.2 g/dL Normal 3.4-4.8 [facility] Comment on above: Performed By: #### L 500.4100, L501.59454, L501.9520, L506.0400, L500.4050 #### [facility] [address] [place], [address] Albumin/Globulin [Mass ratio] 1.2 {ratio} Normal 0.9-2.4 [facility] Comment on above: Performed By: #### L 500.4100, L501.93966, L501.9520, L506.0400, L500.4050 #### [facility] [address] [place], [address] ALK PHOS 80 U/L Normal 35-104 [facility] Comment on above: Performed By: #### L 500.4100, L501.83643, L501.9520, L506.0400, L500.4050 #### [facility] [address] [place], [address] ALT [Catalytic activity/Vol] 13 U/L Normal <=34 [facility] Comment on above: Performed By: #### L 500.4100, L501.00774, L501.9520, L506.0400, L500.4050 #### [facility] [address] [place], [address] AST [Catalytic activity/Vol] 22 U/L Normal <=31 [facility] Comment on above: Performed By: #### L 500.4100, L501.26398, L501.9520, L506.0400, L500.4050 #### [facility] [address] [place], [address] Bilirubin [Mass/Vol] 0.39 mg/dL Normal 0.00-1.30 [facility] Comment on above: Performed By: #### L 500.4100, L501.47324, L501.9520, L506.0400, L500.4050 #### [facility] [address] [place], [address] BUN/CRE 22.2 RATIO High 10-20 [facility] Comment on above: Performed By: #### L 500.4100, L501.32153, L501.9520, L506.0400, L500.4050 #### [facility] [address] [place], [address] Calcium [Mass/Vol] 9.7 mg/dL Normal 7.6-11.0 [facility] Comment on above: Performed By: #### L 500.4100, L501.02150, L501.9520, L506.0400, L500.4050 #### [facility] [address] [place], [address] Chloride [Moles/Vol] 104 mmol/L Normal 98-108 [facility] Comment on above: Performed By: #### L 500.4100, L501.77223, L501.9520, L506.0400, L500.4050 #### [facility] [address] [place], [address] CO2 [Moles/Vol] 27.7 mmol/L Normal 21.0-32.0 [facility] Comment on above: Performed By: #### L 500.4100, L501.45267, L501.9520, L506.0400, L500.4050 #### [facility] [address] [place], [address] Creatinine [Mass/Vol] 0.95 mg/dL Normal 0.70-1.20 [facility] Comment on above: Performed By: #### L 500.4100, L501.73258, L501.9520, L506.0400, L500.4050 #### [facility] [address] [place], [address] GAP 10 Normal 5-15 [facility] Comment on above: Performed By: #### L 500.4100, L501.16684, L501.9520, L506.0400, L500.4050 #### [facility] [address] [place], [address] GFR/1.73 sq M.predicted among non-blacks MDRD (S/P/Bld) [Vol rate/Area] 60 mL/min/{1.73_m2} Normal >60 [facility] Comment on above: Result Comment: mL/m in/1.73m2 CKD-EPI Creatinine Equation (2020) Performed By: #### L 500.4100, L501.82203, L501.9520, L506.0400, L500.4050 #### [facility] [address] [place], [address] Globulin (S) [Mass/Vol] 3.4 g/dL Normal 2.2-4.2 [facility] Comment on above: Performed By: #### L 500.4100, L501.18992, L501.9520, L506.0400, L500.4050 #### [facility] [address] [place], [address] Glucose [Mass/Vol] 125 mg/dL High 70-99 [facility] Comment on above: Performed By: #### L 500.4100, L501.36475, L501.9520, L506.0400, L500.4050 #### [facility] [address] [place], [address] Potassium [Moles/Vol] 4.0 mmol/L Normal 3.3-5.1 [facility] Comment on above: Performed By: #### L 500.4100, L501.42089, L501.9520, L506.0400, L500.4050 #### [facility] [address] [place], [address] Sodium [Moles/Vol] 141 mmol/L Normal 133-145 [facility] Comment on above: Performed By: #### L 500.4100, L501.80566, L501.9520, L506.0400, L500.4050 #### [facility] [address] [place], [address] T PROT 7.5 g/dL Normal 5.9-8.4 [facility] Comment on above: Performed By: #### L 500.4100, L501.11793, L501.9520, L506.0400, L500.4050 #### [facility] [address] [place], [address] Urea nitrogen [Mass/Vol] 21 mg/dL High 4-19 [facility] Comment on above: Performed By: #### L 500.4100, L501.67871, L501.9520, L506.0400, L500.4050 #### [facility] [address] [place], [address] Free T3on 08-24-2024 Free T3 [Mass/Vol] 2.4 pg/mL Normal 2.18-3.98 [facility] Comment on above: Performed By: #### L 500.4100, L501.69316, L501.9520, L506.0400, L500.4050 #### [facility] [address] [place], [address] Free [id number] By: Diallo harper on 08-24-2024 Free Triiodothyronine (T3) pg/dL 2.4 pg/mL 2.18-3.98 [facility] GFR/1.73 sq M.predicted ciara g non-blacks MDRD (S/P/Bld) [Vol rate/Area]Ordered By: Diallo Ingram on 08-24-2024 Estimated GFR (MDRD) Non-Af Amer 60 >60 [facility] Comment on above: mL/min/1.73m2 CKD-EP I Creatinine Equation (2020) LDL calc ser/plasOrdered By: Diallo Ingram on 08-24-2024 LDL Cholesterol, Calculated 90 mg/dL [facility] Comment on above: Mertwtbibx=404-444 m g/dL & Higher Bjrx=535 mg/dL or greater Laboratory - Chemistry and C hemistry - challengeOrdered By: Diallo Ingram on 08-24-2024 AST [Catalytic activity/Vol] 22 U/L <32 [facility] Lipid Profileon 08-24-2024 CHOL:HDL 3.03 Normal [facility] Comment on above: Performed By: #### L 500.4100, L501.16306, L501.9520, L506.0400, L500.4050 #### [facility] [address] [place], [address] Cholesterol [Mass/Vol] 184 mg/dL Normal <=200 [facility] Comment on above: Result Comment: Chol esterol level, Desirable <200 mg/dL Borderline high cholesterol 200-239 mg/dL High cholesterol >=240 mg/dL Recommendations of the NCEP Adult Treatment Panel for the following risk-cutoff thresholds for the [place] population. Performed By: #### L 500.4100, L501.39422, L501.9520, L506.0400, L500.4050 #### [facility] [address] [place], [address] Cholesterol in HDL [Mass/Vol] 61 mg/dL Normal [facility] Comment on above: Result Comment: Trish onal Cholesterol Education Program (NCEP) guidelines: <40 mg/dL: Low HDL-cholesterol (major risk factor for CHD) >= 60 mg/dL: High HDL-cholesterol (negative risk factor for CHD) HDL-cholesterol is affected by a number of factors, e.g. smoking, exercise, hormones, sex and age. Performed By: #### L 500.4100, L501.63929, L501.9520, L506.0400, L500.4050 #### [facility] [address] [place], [address] Cholesterol in LDL [Mass/Vol] 90 mg/dL Normal [facility] Comment on above: Result Comment: Bord ustwbv=276-034 mg/dL Higher Gyfi=798 mg/dL or greater Performed By: #### L 500.4100, L501.51811, L501.9520, L506.0400, L500.4050 #### [facility] [address] [place], [address] Cholesterol in VLDL [Mass/Vol] 33 mg/dL Normal 5-40 [facility] Comment on above: Performed By: #### L 500.4100, L501.22034, L501.9520, L506.0400, L500.4050 #### [facility] [address] [place], [address] Triglyceride [Mass/Vol] 164 mg/dL Normal [facility] Comment on above: Result Comment: The drugs N-Acetylcysteine and Metamizole may falsely depress this assay. Normal range: <150 mg/dL Borderline High: 150-199 mg/dL High: 200-499 mg/dL Very High: >500 mg/dL Performed By: #### L 500.4100, L501.46935, L501.9520, L506.0400, L500.4050 #### [facility] [address] [place], [address] Potassium (Unsp spec) [Mass/ Vol]Ordered By: Diallo Ingram on 08-24-2024 Potassium [Moles/Vol] 4.0 mmol/L 3.3-5.1 [facility] Screening total cholesterol/ high density lipoprotein (HDL) cholesterol ratioOrdered By: Diallo Ingram on 08-24-2024 Cholesterol.total/Chol esterol in HDL [Mass ratio] 3.03 {ratio} [facility] Serum creatinine measurement (mass/volume)Ordered By: Diallo Ingram on 08-24-2024 Creatinine [Mass/Vol] 0.95 mg/dL 0.70-1.20 [facility] Serum globulin measurementOr dered By: Diallo Ingram on 08-24-2024 Globulin (S) [Mass/Vol] 3.4 g/dL 2.2-4.2 [facility] Serum glucose measurement (m ass/volume)Ordered By: Diallo Ingram on 08-24-2024 Glucose [Mass/Vol] 125 mg/dL High 70-99 [facility] Serum or plasma alanine rosales otransferase (ALT) measurementOrdered By: Diallo Ingram on 08-24-2024 ALT [Catalytic activity/Vol] 13 U/L <35 [facility] Serum or plasma albumin flory urement (mass/volume)Ordered By: Diallo Ingram on 08-24-2024 Albumin [Mass/Vol] 4.2 g/dL 3.4-4.8 [facility] Serum or plasma albumin/glob ulin mass ratioOrdered By: Diallo Ingram on 08-24-2024 Albumin/Globulin [Mass ratio] 1.2 {ratio} 0.9-2.4 [facility] Serum or plasma alkaline andres sphatase measurementOrdered By: Diallo Ingram on 08-24-2024 ALP [Catalytic activity/Vol] 80 U/L 35-104 [facility] Serum or plasma calcium flory urement (mass/volume)Ordered By: Diallo Ingram on 08-24-2024 Calcium [Mass/Vol] 9.7 mg/dL 7.6-11.0 [facility] Serum or plasma cholesterol in HDL measurement (mass/volume)Ordered By: Diallo Ingram on 08-24-2024 Cholesterol in HDL [Mass/Vol] 61 mg/dL >40 [facility] Comment on above: National Cholesterol Education Program (NCEP) guidelines:<40 mg/dL: Low HDL-cholesterol (major risk factor for CHD)>= 60 mg/dL: High HDL-cholesterol (negative risk factor for CHD)HDL-cholesterol is affected by a number of factors, e.g. smoking, exercise, hormones, sex and age. Serum or plasma cholesterol measurement (mass/volume)Ordered By: Diallo Ingram on 08-24-2024 Cholesterol [Mass/Vol] 184 mg/dL <201 [facility] Comment on above: Cholesterol level, D esirable <200 mg/dLBorderline high cholesterol 200-239 mg/dLHigh cholesterol >=240 mg/dLRecommendations of the NCEP Adult Treatment Panel for the following risk-cutoff thresholds for the [place] population. Serum or plasma urea nitroge n measurement (mass/volume)Ordered By: Diallo Ingram on 08-24-2024 Urea nitrogen [Mass/Vol] 21 mg/dL High 4-19 [facility] Sodium levelOrdered By: Diallo Ingram on 08-24-2024 Sodium [Moles/Vol] 141 mmol/L 133-145 [facility] T4 Free Directon 08-24-2024 T4 FREE DIRECT 1.10 ng/dL Normal 0.76-1.46 [facility] Comment on above: Performed By: #### L 500.4100, L501.15147, L501.9520, L506.0400, L500.4050 #### [facility] [address] [place], [place], [address] T4 freeOrdered By: Diallo harper on 08-24-2024 Free T4 [Mass/Vol] 1.10 ng/dL 0.76-1.46 [facility] TSH DL <= 0.005 mIU/L QnOrde red By: Diallo Ingram on 08-24-2024 Thyroid Stimulating Hormone (TSH) 1.910 uIU/mL 0.300-4.200 [facility] Thyroid Stim Hormone (TSH)on 08-24-2024 TSH 1.910 uIU/mL Normal 0.300-4.200 [facility] Comment on above: Performed By: #### L 500.4100, L501.03644, L501.9520, L506.0400, L500.4050 #### [facility] [address] [place], [place], [address] Total proteinOrdered By: Savita Ingram on 08-24-2024 Protein [Mass/Vol] 7.5 g/dL 5.9-8.4 [facility] Triglycerides measurementOrd ered By: Diallo Ingram on 08-24-2024 Triglyceride [Mass/Vol] 164 mg/dL <199 [facility] Comment on above: The drugs N-Acetylcy steine and Metamizole may falsely depress this assay. Normal range: <150 mg/dLBorderline High: 150-199 mg/dLHigh: 200-499 mg/dLVery High: >500 mg/dL Comprehensive Metabolic [facility] ilon 03-27-2024 Albumin [Mass/Vol] 3.5 g/dL Normal 3.2-5.0 [facility] Comment on above: Performed By: #### L 500.4050 #### [facility] [address] [place], [address] Albumin/Globulin [Mass ratio] 0.9 {ratio} Normal 0.9-2.4 [facility] Comment on above: Performed By: #### L 500.4050 #### [facility] [address] [place], [address] ALK P 68 U/L Normal 45-117 [facility] Comment on above: Performed By: #### L 500.4050 #### [facility] [address] [place], [address] ALT [Catalytic activity/Vol] 19 U/L Normal 13-56 [facility] Comment on above: Performed By: #### L 500.4050 #### [facility] [address] [place], [address] AST [Catalytic activity/Vol] 21 U/L Normal 15-37 [facility] Comment on above: Performed By: #### L 500.4050 #### [facility] [address] [place], [address] Bilirubin [Mass/Vol] 0.50 mg/dL Normal 0.20-1.00 [facility] Comment on above: Result Comment: For patients on eltrombopag therapy, use of Dimension [place] TBIL is not recommended. Performed By: #### L 500.4050 #### [facility] [address] [place], [address] BUN/CRE 19.0 RATIO Normal 10-20 [facility] Comment on above: Performed By: #### L 500.4050 #### [facility] [address] [place], [address] CA,Total 9.5 mg/dL Normal 8.5-10.1 [facility] Comment on above: Performed By: #### L 500.4050 #### [facility] [address] [place], [address] Chloride [Moles/Vol] 106 mmol/L Normal 98-107 [facility] Comment on above: Performed By: #### L 500.4050 #### [facility] [address] [place], [address] CO2 [Moles/Vol] 30.0 mmol/L Normal 21.0-32.0 [facility] Comment on above: Performed By: #### L 500.4050 #### [facility] [address] [place], [address] Creatinine [Mass/Vol] 1.00 mg/dL Normal 0.55-1.02 [facility] Comment on above: Result Comment: The validity of the calculated GFR GFRAA in patients over 70 years has not been determined. Clinical correlation is essential. Performed By: #### L 500.4050 #### [facility] [address] [place], [address] EST GFR - AA 68 mL/min Normal >60 [facility] Comment on above: Result Comment: Afri can [place] GFR Calc Performed By: #### L 500.4050 #### [facility] [address] [place], [address] GAP 3 Low 5-15 [facility] Comment on above: Performed By: #### L 500.4050 #### [facility] [address] [place], [address] GFR/1.73 sq M.predicted among non-blacks MDRD (S/P/Bld) [Vol rate/Area] 57 mL/min/{1.73_m2} Low >60 [facility] Comment on above: Result Comment: Non- GFR Calc Performed By: #### L 500.4050 #### [facility] [address] [place], [address] Globulin (S) [Mass/Vol] 4.0 g/dL Normal 2.2-4.2 [facility] Comment on above: Performed By: #### L 500.4050 #### [facility] [address] [place], [address] Glucose [Mass/Vol] 111 mg/dL High 74-106 [facility] Comment on above: Result Comment: Fast ing Glucose result from 100 to 125 mg/dL suggests IMPAIRED HOMEOSTASIS per A.D.A. criteria. Performed By: #### L 500.4050 #### [facility] [address] [place], [address] Potassium [Moles/Vol] 3.9 mmol/L Normal 3.5-5.1 [facility] Comment on above: Performed By: #### L 500.4050 #### [facility] [address] [place], [address] Sodium [Moles/Vol] 139 mmol/L Normal 136-145 [facility] Comment on above: Performed By: #### L 500.4050 #### [facility] [address] [place], [address] T PROT 7.5 g/dL Normal 6.4-8.2 [facility] Comment on above: Performed By: #### L 500.4050 #### [facility] [address] [place], [address] Urea nitrogen [Mass/Vol] 19 mg/dL High 12-25 [facility] Comment on above: Performed By: #### L 500.4050 #### [facility] [address] [place], [address] 12 Lead EKGon 03-25-2024 12 Lead EKG [facility] [address] [place] [address] 12 Lead EKG 03/25/24 1347 MR#: [id number] Acct: [id number] Name: REYNA SHRESTHA Rep #: [id number] : 1940 83 From: Juno Zaragoza MD Attending Dr: Status: DEP ER Ordering Dr: Joo Borden MD Date: 03/25/24 Location: ED Sex: F C Admitted: Test Reason : Blood Pressure : / mmHG Vent. Rate : 061 BPM Atrial Rate : 061 BPM P-R Int : 178 ms QRS Dur : 156 ms QT Int : 464 ms P-R-T Axes : 007 -81 -10 degrees QTc Int : 467 ms Normal sinus rhythm Left axis deviation Right bundle branch block Abnormal ECG Confirmed by Juno Zaragoza ([id number]), acquisitions editor ROB PARKER ([id number]) on 03/27/2024 1:29:04 PM Referred By: Confirmed By:Juno Zaragoza 03/27/24 1329 Date Juno Zaragoza MD CC: Dr. Diallo Ingram MD; Dr. Joo Borden MD Signed Normal [facility] Chest PA and Lateralon 03-25 Chest PA and Lateral [facility] [address] [place] [address] Chest PA and Lateral MR#: [id number] Acct: [id number] Name: REYNA SHRESTHA Rep #: [id number] : 1940 F 83 From: [place] PCP: Dr. Diallo Ingram MD Status: REG ER Study: Chest PA and Lateral Date of Exam: 03/25/24 Exam# [id number] Ordering Dr: Joo Borden MD [id number] INDICATION: Chest/epigastric pain EXAMINATION/TECHNIQUE: X-RAY - XR Chest 2 Views COMPARISON: Prior study dated: FINDINGS: LINES/DEVICES: None. LUNGS: Mild linear atelectasis or scarring in the lingula. No focal consolidation is seen. No evidence of pleural effusions. MEDIASTINUM AND CARDIOVASCULAR STRUCTURES: Normal cardiac silhouette. Atherosclerotic calcifications and tortuosity of the thoracic aorta. BONES AND SOFT TISSUES: Degenerative changes of the thoracic spine. RAD/Chest PA and Lateral IMPRESSION: No radiographic evidence of acute cardiopulmonary disease. Electronically Signed: Layton Jaimes MD at 14:03 EDT , CC: Dr. Diallo Ingram MD; Dr. Joo Borden MD Field Cane Scaler Helper: Signed Normal [facility] Emergency Department Summary on 03-25-2024 Emergency Department Summary [facility] Medical Records Department [address] [place] [id number] Emergency Department Summary 03/25/24 MR#: [id number] Acct: [id number] Name: REYNA SHRESTHA Rep #: [id number] : 1940 83 From: Joo Borden MD PCP: Dr. Diallo Ingram MD Status:REG ER Location: ED HPI History of Present Illness Chief Complaint: Chest Pain Detail of Chief Complaint: Reported xiphoid/epigastric pain while eating Informant: EMS Limited: dementia Onset/Context/Timing Onset: - (Patient was unaware that she had pain. She states they put me in a vehicle and sent me here.) Activity at onset: sudden Timing: Intermittent Quality: Positive for - (Pain per EMS) Location: - (Subxiphoid region) Current Severity: Gone Maximum Severity: Severe Worsened By: Nothing Relieved By: Nothing Associated Symptoms: Positive for Diaphoresis; Negative for Nausea, Vomiting, Dyspnea, Cough, Fever, Lightheadedness, Acid Reflux or Palpitations Narrative Narrative: Patient is an 83-year-old woman with past medical history of hypertension and hypercholesterolemia who presents with severe subxiphoid discomfort. She was diaphoretic. She appeared distressed when paramedics arrived. The pain resolved on its own. Patient has significant dementia that she is unable to contribute with regards to history. Prior Similar Symptoms: - (Unknown) Recent Illness/Hospitalization: No CVD Risk Factors: Positive for Hypertension and Hypercholesterolemia; Negative for Diabetes or Smoking PE Risk Factors: Positive for - (Unknown) TAD Risk Factors: Positive for Hypertension PFSH PFS Medical History (Updated 03/25/24 @ 16:[address] Joo Borden MD) Dementia Home Medications ???Medication ???Instructions ???Recorded ???Last Taken ???Type amlodipine 5 mg tablet 5 mg PO DAILY 09/12/19 03/25/24 History lovastatin 20 mg tablet 20 mg PO DAILY 09/12/19 03/24/24 History dicyclomine 20 mg tablet 20 mg PO TID 03/25/24 03/25/24 History donepezil 10 mg tablet 20 mg PO DAILY 03/25/24 03/24/24 History levothyroxine 75 mcg tablet 75 mcg PO DAILY 03/25/24 03/24/24 History meloxicam 15 mg tablet 15 mg PO DAILY 03/25/24 03/24/24 History memantine 5 mg tablet 5 mg PO BID 03/25/24 03/24/24 History Allergy/AdvReac Type Severity Reaction Status Date / Time Sulfa (Sulfonamide Allergy Rash Verified 09/12/19 14:04 Antibiotics) adhesive tape AdvReac Rash Verified 09/12/19 14:04 Social History Smoking Status: Never smoker ROS ROS ED Review of Systems ROS Unobtainable: due to mental status Cardiovascular Cardiovascular: Reports as per HPI EXAM Physical Exam Const Vital Signs: 03/25/24 13:19 03/25/24 13:23 03/25/24 14:19 Temperature 97.6 F L Temperature Source Temporal Pulse Rate 67 61 Respiratory Rate 16 20 H Respiratory Effort Normal Blood Pressure 113/57 L 109/54 L Blood Pressure Mean 75 72 Pulse Ox 94 95 Oxygen Delivery Method Room Air 03/25/24 15:00 Temperature Temperature Source Pulse Rate 73 Respiratory Rate 20 H Respiratory Effort Blood Pressure 117/61 Blood Pressure Mean 79 Pulse Ox 96 Oxygen Delivery Method Room Air Positive well nourished, well developed and obese General Appearance ED: well developed and NAD; Negative for pallor Nutritional Appearance: obese HEENT Reports TM's clear and moist mucous membranes normocephalic Tympanic Membrane ED: Yes TM's clear Eyes PERRL and EOMs intact bilaterally Neck no lymphadenopathy, supple and no JVD Chest Wall inspection of chest normal and palpation of chest normal Resp normal respiratory effort and clear to auscultation bilaterally Cardio regular rate, regular rhythm, S1 normal heart sound, S2 normal heart sound and no murmurs GI normal to inspection, nondistended, normoactive bowel sounds, soft to palpation, non-tender, non- distended and no masses; Negative for hepatosplenomegaly Back/Spine no CVA tenderness and no thoracic nor lumbar tenderness Extremity normal to inspection General Extremety ED: Negative for pulses abnormal or tenderness General Extremity: Negative for pulses abnormal Neuro No oriented x3, CN's II-XII intact bilaterally and no sensory deficits noted Sensorium / Orientation: awake Psych mental status grossly normal Skin no rashes or lesions noted and no wounds General Skin Exam: Negative for jaundice or pallor MDM MDM MDM Narrative Medical decision making narrative: Differential diagnosis cardiac versus noncardiac. To rule out noncardiac will obtain EKG, troponin with 2-hour troponin. Suspect this is due to esophageal pathology since this occurred while eating. Since she is pain-free at this time no intervention was undertaken. Lab Data Attes (more content not included)... Normal [facility] L501.4020on 03-25-2024 TROPONIN-I HS 5 pg/mL Normal 3.0-54.0 [facility] Comment on above: Result Comment: Plea se Note: New Test Units and Gender Specific Reference Ranges. For more information see Policy Stat Procedure [place] High Sensitivity Troponin (TNIH) and attachments. Performed By: #### L 501.4020 #### [facility] [address] [place], [address] L501.5425on 03-25-2024 TROPONIN-I HS 6 pg/mL Normal 3.0-54.0 [facility] Comment on above: Order Comment: 1Y Result Comment: Plea se Note: New Test Units and Gender Specific Reference Ranges. For more information see Policy Stat Procedure [place] High Sensitivity Troponin (TNIH) and attachments. Performed By: #### L 501.5425 ####[facility] [address] [place], [address] Basic Metabolic Profile (BMP )on 02-19-2024 BUN/CRE 20.0 RATIO Normal 10-20 [facility] Comment on above: Performed By: #### L 506.0400, L500.2500, L500.4100, L501.63932, L501.9520 ####[facility] [address] [place], [address] CA,Total 9.5 mg/dL Normal 8.5-10.1 [facility] Comment on above: Performed By: #### L 506.0400, L500.2500, L500.4100, L501.18622, L501.9520 ####[facility] [address] [place], [address] Chloride [Moles/Vol] 104 mmol/L Normal 98-107 [facility] Comment on above: Performed By: #### L 506.0400, L500.2500, L500.4100, L501.24260, L501.9520 ####[facility] [address] [place], [address] CO2 [Moles/Vol] 30.0 mmol/L Normal 21.0-32.0 [facility] Comment on above: Performed By: #### L 506.0400, L500.2500, L500.4100, L501.37319, L501.9520 ####[facility] [address] [place], [address] Creatinine [Mass/Vol] 1.00 mg/dL Normal 0.55-1.02 [facility] Comment on above: Result Comment: The validity of the calculated GFR GFRAA in patients over 70 years has not been determined. Clinical correlation is essential. Performed By: #### L 506.0400, L500.2500, L500.4100, L501.80704, L501.9520 ####[facility] [address] [place], [address] EST GFR - AA 68 mL/min Normal >60 [facility] Comment on above: Result Comment: Afri can [place]an GFR Calc Performed By: #### L 506.0400, L500.2500, L500.4100, L501.73783, L501.9520 ####[facility] [address] [place], [address] GAP 5 Normal 5-15 [facility] Comment on above: Performed By: #### L 506.0400, L500.2500, L500.4100, L501.57645, L501.9520 ####[facility] [address] [place], [address] GFR/1.73 sq M.predicted among non-blacks MDRD (S/P/Bld) [Vol rate/Area] 57 mL/min/{1.73_m2} Low >60 [facility] Comment on above: Result Comment: Non- GFR Calc Performed By: #### L 506.0400, L500.2500, L500.4100, L501.13594, L501.9520 ####[facility] [address] [place], [address] Glucose [Mass/Vol] 111 mg/dL High 74-106 [facility] Comment on above: Result Comment: Fast ing Glucose result from 100 to 125 mg/dL suggests IMPAIRED HOMEOSTASIS per A.D.A. criteria. Performed By: #### L 506.0400, L500.2500, L500.4100, L501.35637, L501.9520 ####[facility] [address] [place], [address] Potassium [Moles/Vol] 4.2 mmol/L Normal 3.5-5.1 [facility] Comment on above: Performed By: #### L 506.0400, L500.2500, L500.4100, L501.02704, L501.9520 ####[facility] [address] [place], [address] Sodium [Moles/Vol] 139 mmol/L Normal 136-145 [facility] Comment on above: Performed By: #### L 506.0400, L500.2500, L500.4100, L501.48722, L501.9520 ####[facility] [address] [place], [address] Urea nitrogen [Mass/Vol] 20 mg/dL High 7-18 [facility] Comment on above: Performed By: #### L 506.0400, L500.2500, L500.4100, L501.40807, L501.9520 ####[facility] [address] [place], [address] Free T3on 02-19-2024 Free T3 [Mass/Vol] 2.0 pg/mL Low 2.18-3.98 [facility] Comment on above: Performed By: #### L 506.0400, L500.2500, L500.4100, L501.86719, L501.9520 ####[facility] [address] [place], [address] Lipid Profileon 02-19-2024 Cholesterol [Mass/Vol] 156 mg/dL Normal 200 [facility] Comment on above: Result Comment: <200 mg/dL Desirable 200-240 mg/dL Borderline >240 mg/dL High Risk Performed By: #### L 506.0400, L500.2500, L500.4100, L501.51802, L501.9520 ####[facility] [address] [place], [address] Cholesterol in HDL [Mass/Vol] 52 mg/dL Normal [facility] Comment on above: Result Comment: The drugs N-Acetylcysteine and Metamizole may falsely depress this assay. Reference Range HDL <40 mg/dL Low HDL Cholesterol HDL >or= 60 mg/dL High HDL Cholesterol Performed By: #### L 506.0400, L500.2500, L500.4100, L501.52532, L501.9520 ####[facility] [address] [place], [address] Cholesterol in LDL [Mass/Vol] 54 mg/dL Normal 0-130 [facility] Comment on above: Performed By: #### L 506.0400, L500.2500, L500.4100, L501.00678, L501.9520 ####[facility] [address] [place], [address] Cholesterol in VLDL [Mass/Vol] 50 mg/dL High 5-40 [facility] Comment on above: Performed By: #### L 506.0400, L500.2500, L500.4100, L501.83546, L501.9520 ####[facility] [address] [place], [address] Triglyceride [Mass/Vol] 251 mg/dL High [facility] Comment on above: Result Comment: The drugs N-Acetylcysteine and Metamizole may falsely depress this assay. Serum Triglycerides Reference Interval Normal <150 mg/dL Borderline high 150 - 199 mg/dL High 200 - 499 mg/dL Very High > or = 500 mg/dL Performed By: #### L 506.0400, L500.2500, L500.4100, L501.75341, L501.9520 ####[facility] [address] [place], [address] T4 Free Directon 02-19-2024 T4 FREE DIRECT 0.96 ng/dL Normal 0.76-1.46 [facility] Comment on above: Performed By: #### L 506.0400, L500.2500, L500.4100, L501.94479, L501.9520 ####[facility] [address] [place], [address] Thyroid Stim Hormone (TSH)on 02-19-2024 TSH 1.450 uIU/mL Normal 0.358-3.740 [facility] Comment on above: Performed By: #### L 506.0400, L500.2500, L500.4100, L501.36012, L501.9520 ####[facility] [address] [place], [address] Basophil percentageOrdered B y: Diallo Ingram on 07-18-2023 Bilirubin [Mass/Vol] 0.50 mg/dL 0.20-1.00 [facility] Comment on above: For patients on eltr ombopag therapy, use of Dimension [place] TBIL is not recommended. Chloride [Moles/Vol] 103 mmol/L 98-107 [facility] Cholesterol [Mass/Vol] 150 mg/dL <200 [facility] Comment on above: <200 mg/dL Desirable 200-240 mg/dL Borderline >240 mg/dL High Risk Glucose [Mass/Vol] 109 mg/dL 74-106 [facility] Comment on above: Fasting Glucose resu lt from 100 to 125 mg/dL suggests IMPAIRED HOMEOSTASIS per A.D.A. criteria. Potassium [Moles/Vol] 4.3 mmol/L 3.5-5.1 [facility] Protein [Mass/Vol] 7.7 g/dL 6.4-8.2 [facility] Sodium [Moles/Vol] 137 mmol/L 136-145 [facility] Triglyceride [Mass/Vol] 189 mg/dL <199 [facility] Comment on above: The drugs N-Acetylcy steine and Metamizole may falsely depress this assay.Serum Triglycerides Reference Interval Normal <150 mg/dL Borderline high 150 - 199 mg/dL High 200 - 499 mg/dL Very High > or = 500 mg/dL Laboratory - Chemistry and C hemistry - challengeOrdered By: Diallo Ingram on 07-18-2023 Albumin/Globulin [Mass ratio] 1.0 {ratio} 0.9-2.4 [facility] ALP [Catalytic activity/Vol] 64 U/L 45-117 [facility] ALT [Catalytic activity/Vol] 23 U/L 13-56 [facility] Cholesterol in HDL [Mass/Vol] 61 mg/dL >40 [facility] Comment on above: The drugs N-Acetylcy steine and Metamizole may falsely depress this assay. Reference Range HDL <40 mg/dL Low HDL Cholesterol HDL >or= 60 mg/dL High HDL Cholesterol Cholesterol in LDL [Mass/Vol] 51 mg/dL 0-130 [facility] CO2 [Moles/Vol] 31.0 mmol/L 21.0-32.0 [facility] Globulin (S) [Mass/Vol] 3.9 g/dL 2.2-4.2 [facility] Urea nitrogen/Creatinine [Mass ratio] 21.2 mg/mg 10-20 [facility] No Panel InformationOrdered By: Diallo Ingram on 07-18-2023 Estimated GFR (MDRD) Amer 69 mL/min >60 [facility] Comment on above: GFR Calc Estimated GFR (MDRD) Non-Af Amer 57 mL/min >60 [facility] Comment on above: Non- GFR Calc Free Triiodothyronine (T3) pg/dL 1.8 pg/mL 2.18-3.98 [facility] VLDL Cholesterol 38 mg/dL 5-40 [facility] Serum or plasma calcium flory urement (mass/volume)Ordered By: Diallo Ingram on 07-18-2023 Calcium [Mass/Vol] 9.4 mg/dL 8.5-10.1 [facility] Serum or plasma creatinine m easurement (mass/volume)Ordered By: Diallo Ingram on 07-18-2023 Creatinine [Mass/Vol] 0.99 mg/dL 0.55-1.02 [facility] Comment on above: The validity of the calculated GFR & GFRAA in patients over 70 years has not been determined. Clinical correlation is essential. Serum or plasma thyroid stim ulating hormone (TSH) measurement (units/volume)Ordered By: Diallo Ingram on 07-18-2023 TSH Qn 4.33 uIU/mL 0.358-3.74 [facility] Serum or plasma urea nitroge n measurement (mass/volume)Ordered By: Diallo Ingram on 07-18-2023 Urea nitrogen [Mass/Vol] 21 mg/dL 7-18 [facility] Thin prep Papanicolaou smear with manual screeningOrdered By: Diallo Ingram on 07-18-2023 Thin prep Papanicolaou smear with manual screening 3.8 g/dL 3.2-5.0 [facility] Thin prep Papanicolaou smear with manual screening 19 U/L 15-37 [facility] Thin prep Papanicolaou smear with manual screening 3 5-15 [facility] Thin prep Papanicolaou smear with manual screening 0.84 ng/dL 0.76-1.46 [facility] Basophil percentageOrdered B y: Dr. Ingram on 11-22-2022 Chloride [Moles/Vol] 107 mmol/L 98-107 [facility] Cholesterol [Mass/Vol] 123 mg/dL <200 [facility] Comment on above: <200 mg/dL Desirable 200-240 mg/dL Borderline >240 mg/dL High Risk Glucose [Mass/Vol] 115 mg/dL 74-106 [facility] Comment on above: Fasting Glucose resu lt from 100 to 125 mg/dL suggests IMPAIRED HOMEOSTASIS per A.D.A. criteria. Potassium [Moles/Vol] 4.1 mmol/L 3.5-5.1 [facility] Sodium [Moles/Vol] 140 mmol/L 136-145 [facility] Triglyceride [Mass/Vol] 67 mg/dL <199 [facility] Comment on above: The drugs N-Acetylcy steine and Metamizole may falsely depress this assay.Serum Triglycerides Reference Interval Normal <150 mg/dL Borderline high 150 - 199 mg/dL High 200 - 499 mg/dL Very High > or = 500 mg/dL Laboratory - Chemistry and C hemistry - challengeOrdered By: Dr. Ingram on 11-22-2022 CO2 [Moles/Vol] 27.0 mmol/L 21.0-32.0 [facility] Free T4 [Mass/Vol] 1.80 ng/dL 0.76-1.46 [facility] Urea nitrogen/Creatinine [Mass ratio] 26.5 mg/mg 10-20 [facility] No Panel InformationOrdered By: Dr. Ingram on 11-22-2022 Estimated GFR (MDRD) Amer 90 mL/min >60 [facility] Comment on above: GFR Calc Estimated GFR (MDRD) Non-Af Amer 74 mL/min >60 [facility] Comment on above: Non- GFR Calc Free Triiodothyronine (T3) pg/dL 2.9 pg/mL 2.18-3.98 [facility] Thyroid Stimulating Hormone (TSH) < 0.01 uIU/mL 0.358-3.74 [facility] Serum or plasma calcium flory urement (mass/volume)Ordered By: Dr. Ingram on 11-22-2022 Calcium [Mass/Vol] 9.7 mg/dL 8.5-10.1 [facility] Serum or plasma cholesterol in HDL measurement (mass/volume)Ordered By: Dr. Ingram on 11-22-2022 Cholesterol in HDL [Mass/Vol] 58 mg/dL >40 [facility] Comment on above: The drugs N-Acetylcy steine and Metamizole may falsely depress this assay. Reference Range HDL <40 mg/dL Low HDL Cholesterol HDL >or= 60 mg/dL High HDL Cholesterol Serum or plasma cholesterol in VLDL measurement (mass/volume)Ordered By: Dr. Ingram on 11-22-2022 Cholesterol in VLDL [Mass/Vol] 13 mg/dL 5-40 [facility] Serum or plasma creatinine m easurement (mass/volume)Ordered By: Dr. Ingram on 11-22-2022 Creatinine [Mass/Vol] 0.79 mg/dL 0.55-1.02 [facility] Comment on above: The validity of the calculated GFR & GFRAA in patients over 70 years has not been determined. Clinical correlation is essential. Serum or plasma low density lipoprotein (LDL) cholesterol measurement (mass/volume)Ordered By: Dr. Ingram on 11-22-2022 Cholesterol in LDL [Mass/Vol] 52 mg/dL 0-130 [facility] Serum or plasma urea nitroge n measurement (mass/volume)Ordered By: Dr. Ingram on 11-22-2022 Urea nitrogen [Mass/Vol] 21 mg/dL 7-18 [facility] Thin prep Papanicolaou smear with manual screeningOrdered By: Dr. Ingram on 11-22-2022 Thin prep Papanicolaou smear with manual screening 6 5-15 [facility] Encounters Encounter Date Encounter Type Care Provider Facility Start: 12-07-2024 ambulatory Diallo Ingram OLS Facili ty:[facility] Start: 08-24-2024 End: 08-24-[address] Diallo Ingram MD Work Phone: [facility] Work Phone: Start: 08-24-2024 End: 08-24-[address] Diallo Ingram MD -[facility] Work Phone: Start: 08-24-2024 End: 08-24-2024 ambulatory Diallo Ingram Facility:[facility] Start: 03-27-2024 End: 03-27-2024 ambulatory Diallo Ingram Facility:[facility] Start: 03-25-2024 End: 03-25-2024 Emergency department patient visit Diallo Ingram Facility:[facility] Start: 02-19-2024 End: 02-19-2024 ambulatory Diallo Ingram Facility:[facility] Start: 07-18-2023 End: 07-18-2023 ambulatory [facility] Work Phone: Start: 07-18-2023 End: 07-18-2023 Patient encounter procedure [facility] Start: 11-22-2022 End: 11-22-2022 ambulatory [facility] Work Phone: Start: 11-22-2022 End: 11-22-2022 Patient encounter procedure [facility] Payers Date Payer Category Payer Self-pay [id number] 2024 Unknown [id number] 2007 Medicare [id number] Unknown [id number] 2.16.8 [id number] Unknown [id number] 2.16.8 [id number] Unknown [id number] 2.16.8 [id number] Unknown [id number] 2.16.8 [id number] Unknown [id number] 2.16.8 [id number] Social History Date Type Detail Facility Start: 09-12-2019 End: 09-12-2019 Tobacco smoking status HIIS Unknown if ever smoked [facility] Start: 1940 Sex Assigned At Female [facility] Start: 03-25-2024 Tobacco smoking stat us HIIS Never smoked tobacco (finding) [facility] Start: 08-29-2024 Sex Female (finding) [facility] Evaluation note Note Date & Type Note Facility Evaluation note No assessment information availa ble [facility] Work Phone: Reason for referral (narrative) Note Date & Type Note Facility Reason for referral (narrative) No reason for referral information available [facility] Work Phone: Advance Directives No Advanced Directives Records Found Advance Directive Response Recorded Date/ Time Living Will Yes September 12, 2019 2:31pm Power of Csr Retail Yes September 11 0 2:31pm Advance Directive Response Recorded Date/ Time Living Will Yes September 12, 2019 1:31pm Power of Csr Retail Yes September 11 0 1:31pm Chief Complaint and Reason for Visit Chief Complaint Admit Date FASTING August 24, 2024 7:1 7am Summary Purpose Family History No Family History Records Found Additional Source Comments Care Teams (unrecognized sec tion and content) Team Status: Active Member Role Status Dates Dr. Diallo Ingram MD Family Provider Active Dr. Diallo Ingram MD Primary Care Provider Active Team Status: Inactive Member Role Status Dates Dr. Diallo Ingram MD Primary Care Provider, Attending Provider Active Team Status: Inactive Member Role Status Dates Dr. Diallo Ingram MD Primary Care Provider Active Start: August 24, 2024 End: August 24, 2024 Dr. Diallo Ingram MD Attending Provider Active Start: August 24, 2024 End: August 24, 2024 Dr. Diallo Ingram MD Referring Provider Active Start: August 24, 2024 End: August 24, 2024 Goals (unrecognized section and content) Goals may be documented in a n alternate sectionGoals may be documented in an alternate sectionGoals may be documented in an alternate section INFORMATION SOURCE (unrecogn ized section and content) DATE CREATED AUTHOR 12/09/2024 [facility] FOR RECORDS PERTAINING TO PATIENTS WHO ARE OR HAVE BEEN ENROLLED IN A CHEMICAL DEPENDENCY/SUBSTANCEABUSE PROGRAM, SOME INFORMATION MAY BE OMITTED. This clinical summary was aggregated from multiple sources. Caution should be exercised in using it in the provision of clinical care. This summary normalizes information from multiple sources, and as a consequence, information in this document may materially change the coding, format and clinical context of patient data. In addition, data may be omitted in some cases. CLINICAL DECISIONS SHOULD BE BASED ON THE PRIMARY CLINICAL RECORDS. [employer] provides no warranty or guarantee of the accuracy or completeness of information in this document.
--- NOTE | 2024-12-26 10:52 | RAD_ITS ---
PROCEDURE: SHOULDER MIN 2 VIEWS 12/26/2024 REASON FOR EXAM: FALL TECHNIQUE: SHOULDER MIN 2 VIEWS COMPARISON: None FINDINGS: Two views of the right shoulder were obtained and demonstrate diffuse osteopenia of the osseous structures. There is a comminuted fracture involving the right humeral head/ neck region. There is slight displacement of the distal portion of the humerus superiorly by approximately 11 mm. There is slight displacement of the right humeral shaft medially. There is decreased space between the acromion and the right humeral head. Very mild arthritic changes are seen involving the right acromioclavicular joint and glenohumeral joint. No obvious displaced right rib fractures are seen. There is no lung contusion or pneumothorax. The visualized right lung is clear. RAD/Shoulder min 2 Views IMPRESSION: Comminuted displaced fracture of the right humeral head/ neck region as describ ed above. 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 Reading Location: [id number]
--- NOTE | 2024-12-26 10:52 | RAD_ITS ---
PROCEDURE: HIP, UNI W/ PELVIS 2-3 VIEWS 12/26/2024 REASON FOR EXAM: FALL TECHNIQUE: HIP, UNI W/ PELVIS 2-3 VIEWS AP pelvic view was obtained as well as two views of the right hip. COMPARISON: Hip and pelvic study dated 10/17/2023 FINDINGS: AP pelvis and two views of the right hip were obtained and demonstrate diffuse osteopenia of the osseous structures. There are no acute fractures or dislocations. Degenerative changes of the lower lumbar spine are noted. SI joints appear unremarkable. Arthritic changes of the pubic symphysis are noted. 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 Moderate arthritic changes are noted involving the left hip. There is no fracture or dislocation of the left hip. RAD/HIP, UNI W/ Pelvis 2-3 Views IMPRESSION: The right prosthetic hip device appears to be in satisfactory position without evidence of fracture or loosening. No acute fractures or dislocations are seen. Degenerative changes lower lumbar spine. Arthritic changes of the pubic symphysis. 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 Reading Location: [id number]
[2024-12-26 11:17] LABS: Mucous, Urine 0 SEEN /hpf (<or=2+)
[2024-12-26 11:23] LABS: Color, Urine Yellow (Yellow); Glucose, Dipstick Normal (Normal); Ketone-Dipstick 50 mg/dl (Negative); Leukocyte Esterase-Dipstick 500 /ul (Negative); Nitrite-Dipstick Negative (Negative); Occult Blood-Urine 10 /ul (Negative); Protein-Dipstick 15 mg/dl (Negative); Specific Gravity, Urine 1.010 (1.002-1.030); Urine Bilirubin Dipstick Negative (Negative)
[2024-12-26 11:40] LABS: Red Blood Cells-Urine 0-5 SEEN /hpf (0-5); Squamous Epithelial Cells - UA 0-5 SEEN /hpf (5-10)
[2024-12-26] MEDS: HYDROcodone Bitartrate/Apap 5/325 Tablet PO (13:00)
--- NOTE | 2024-12-26 13:17 | ED.RN ---
Patient assisted back to bed from with extensive cuing. Meal tray of soft/mechanical diet provided.
--- NOTE | 2024-12-26 14:45 | CM.ED ---
Social Work Date of referral: 12/26/24 Reason for referral: No Advanced Care Directives (ACD's) on file Referred by: Social Work identification Patient was asleep when licensed master social worker arrived however patient's and son were in the room. Supervisor Dried Yeast requested a copy of patient's ACD's which patient's stated he would provide. No other services requested at this time. Betina Larkin, [employer], FOOD BAGGING MACHINE OPERATOR
== END 2024-12-26 17:00 | disposition home or self-care (01) ==
PROVIDERS: Emergency Provider Emergency Medicine; PCP Family Medicine; Visit Provider Emergency Medicine
DX: S32.511A Fracture of superior rim of right pubis, initial encounter for closed fracture (principal); F02.C0 Dementia in other diseases classified elsewhere, severe, without behavioral disturbance, psychotic disturbance, mood disturbance, and anxiety; G30.9 Alzheimer's disease, unspecified; S01.81XA Laceration without foreign body of other part of head, initial encounter; S42.291A Other displaced fracture of upper end of right humerus, initial encounter for closed fracture; W19.XXXA Unspecified fall, initial encounter; Y92.128 Other place in nursing home as the place of occurrence of the external cause; I10 Essential (primary) hypertension; E03.9 Hypothyroidism, unspecified; Z66 Do not resuscitate; Z79.890 Hormone replacement therapy; Z79.899 Other long term (current) drug therapy
CPT/HCPCS: 12011; 70450; 73030; 73502; 81001; 87077; 87086; 87088; 87186; 99285; P9612

== ENCOUNTER 2025-03-05 10:11 | Emergency (ER) | payer MEDICARE, OTHER, SELFPAY ==
[2025-03-05 10:12] VITALS: BP 133/83; PULSE 108; RESP 18; TEMP 36.6; O2SAT 97; BMI 23.2
--- NOTE | 2025-03-05 11:08 | CT_ITS ---
PROCEDURE: SPINE CERVICAL WITHOUT CONTRAS 03/05/2025 REASON FOR EXAM: FALL TECHNIQUE: Procedure Code: CTSPC Modality: CT Procedure: SPINE CERVICAL WITHOUT CONTRAS Coronal and Sagittal reconstruction series were provided. One or more dose reduction techniques were used (e.g., Automated exposure control, adjustment of the mA and/or kV according to patient size, use of iterative reconstruction technique. RADIATION DOSE SUMMARY: CTDlvol: 29.38 mGy DLP: 3726.92 mGycm COMPARISON: None. FINDINGS: Alignment: Normal. Vertebrae: No acute bony abnormalities. Soft Tissues: No soft tissue abnormalities. Disc levels: Multilevel degenerate changes predominantly at C4-C5 where there is disc space narrowing, uncovertebral hypertrophy, severe canal stenosis and severe bilateral foramina stenosis. CT/Spine Cervical without Contras IMPRESSION: No acute injury to the cervical spine. Reading Location: [facility]
--- NOTE | 2025-03-05 11:08 | CT_ITS ---
PROCEDURE: BRAIN/HEAD WITHOUT CONTRAST 03/05/2025 REASON FOR EXAM: FALL TECHNIQUE: Procedure Code: CTBR Modality: CT Procedure: BRAIN/HEAD WITHOUT CONTRAST Coronal and Sagittal reconstruction series were provided. One or more dose reduction techniques were used (e.g., Automated exposure control, adjustment of the mA and/or kV according to patient size, use of iterative reconstruction technique. RADIATION DOSE SUMMARY: CTDlvol: 29.38 mGy DLP: 3726.92 mGycm COMPARISON: None. FINDINGS: Brain: Extensive low density in the deep cerebral white matter most likely represents advanced chronic small vessel ischemic disease. No acute territorial infarction. No intracranial hemorrhage. No mass-effect or midline shift. The orbits are unremarkable. CSF Spaces: Advanced generalized cerebral atrophy Sinuses/Mastoids: Clear at visualized levels Bones: No acute bony abnormalities. Soft tissues: Frontal scalp hematoma. CT/Brain/Head without Contrast IMPRESSION: No acute intracranial abnormalities. Reading Location: [id number]
--- NOTE | 2025-03-05 11:08 | CT_ITS ---
PROCEDURE: SINUS/FACIAL BONE 03/05/2025 REASON FOR EXAM: FALL TECHNIQUE: Procedure Code: CTSI Modality: CT Procedure: SINUS/FACIAL BONE Coronal and Sagittal reconstruction series were provided. One or more dose reduction techniques were used (e.g., Automated exposure control, adjustment of the mA and/or kV according to patient size, use of iterative reconstruction technique). RADIATION DOSE SUMMARY: CTDlvol: 29.38 mGy DLP: 3726.92 mGycm COMPARISON: None. FINDINGS: Frontal: Clear. The frontoethmoidal recesses are patent. Ethmoid: Clear. The ethmoidal sphenoidal recess are patent. Sphenoid: Clear. Maxillary: Clear. The ostiomeatal complexes are patent. Turbinates: Unremarkable. Nasal Septum: Midline. Mastoids/Middle Ears: Clear. Bones: No acute fractures. Soft tissues: Right frontal scalp hematoma. CT/Sinus/Facial Bone IMPRESSION: No acute injury to the maxillofacial bones. Reading Location: [id number]
--- NOTE | 2025-03-05 11:26 | ED.VIS.FALL ---
HPI HPI - Fall History of Present Illness Chief Complaint: Fall Narrative Narrative: Chief complaint and HPI: 84-year-old female with past medical history of dementia, HTN, hypothyroidism, GERD presents with from extended care facility in memory care unit for evaluation after a fall. states that it was reported to him that the patient fell out of her wheelchair face forward and hit her head/face. He states she has a history of a recent fall. She has generalized weakness. Patient's baseline per is alert and oriented x 1 at the best but a lot of the time alert and oriented x 0. At her neurological baseline. She has a hematoma to the right forehead was concerned about possibly chipped tooth. Not on blood thinners. No reported LOC. Review of systems: See HPI Medications: As listed on the chart Allergies: As listed on the chart PFSH: Per chart Vital signs: As listed on the chart. Reviewed. Physical exam: Gen: A&O x 0 -baseline per Head: Normocephalic, right forehead hematoma, no piper signs Eyes: No sclera icterus, conjunctiva clear, PERRL, EOMI ENT: TMs clear BL, moist mucous membranes, dried blood in the right nare without any active bleeding, left nare clear, no nasal septal hematoma, ecchymosis to the bridge of the nose, mild tenderness to palpation to the bridge of the nose and hematoma, mouth without swelling, blood, laceration, patient has 4 teeth located only on the bottom-very poor dentition without any obvious traumatic fracture ( looked in the mouth as well and states this appears to be her normal teeth and normal number) Neck: Trachea midline, nontender CV: RRR, no murmurs, no chest wall TTP Resp: Lungs CTA BL, no w/r/c GI: Abd soft, non-distended, non-tender, no r/r/g Musc: Moves all extremities without pain , no deformity, no spinal TTP, no barry step-offs Skin: Warm, dry, intact [facility] Medical History Anorexia GERD (gastroesophageal reflux disease) HTN (hypertension) Hypothyroidism Alzheimer disease Dementia Home Medications ?Medication ?Instructions ?Recorded ?Last Taken ?Type amlodipine 5 mg tablet 5 mg PO DAILY 09/12/19 03/25/24 History lovastatin 20 mg tablet 20 mg PO DAILY 09/12/19 03/24/24 History dicyclomine 20 mg tablet 20 mg PO BID 03/25/24 03/25/24 History levothyroxine 75 mcg tablet 75 mcg PO DAILY 03/25/24 03/24/24 History meloxicam 15 mg tablet 15 mg PO DAILY 03/25/24 03/24/24 History mirtazapine 15 mg tablet 15 mg PO QHS 12/26/24 Unknown History omeprazole 20 mg capsule,delayed 20 mg PO DAILY 12/26/24 Unknown History release polyethylene glycol 3350 17 17 g PO QHS 12/26/24 Unknown History gram/dose oral powder Allergy/AdvReac Type Severity Reaction Status Date / Time Sulfa (Sulfonamide Allergy Rash Verified 12/26/24 07:28 Antibiotics) adhesive tape AdvReac Rash Verified 12/26/24 07:28 Social History Smoking Status: Never smoker EXAM Physical Exam Const Vital Signs: 03/05/25 10:12 03/05/25 10:14 03/05/25 12:11 Temperature 97.8 F Temperature Source Temporal Pulse Rate 108 H 81 Respiratory Rate 18 14 Respiratory Effort Normal Non-Labored Respiratory Depth Normal Respiratory Pattern Normal Blood Pressure 133/83 H Blood Pressure Mean 99 Pulse Ox 97 100 Oxygen Delivery Method Room Air Room Air MDM MDM MDM Narrative Medical decision making narrative: 84-year-old female with past medical history of dementia, HTN, hypothyroidism, GERD presents with from extended care facility in memory care unit for evaluation after a fall. states that it was reported to him that the patient fell out of her wheelchair face forward and hit her head/face. He states she has a history of a recent fall. She has generalized weakness. Patient's baseline per is alert and oriented x 1 at the best but a lot of the time alert and oriented x 0. At her neurological baseline. She has a hematoma to the right forehead was concerned about possibly chipped tooth. Not on blood thinners. No reported LOC. See physical exam findings. No obvious dental fracture. Differential diagnosis includes but is not limited to closed head injury, intracranial bleed, skull fracture, facial/nasal bone fracture, contusion. Tylenol ordered for pain. Patient would not take oral medication. requesting IV medication. 1 mg of IV morphine ordered. CT head, neck, face ordered with chest x-ray. Given this was purely mechanical fall, I do not think any laboratory workup is needed at this time. in agreement. Chest x-ray was personally viewed interpreted by me, ED physician. No pneumonia, pneumothorax, cardiomegaly, effusion. Healing right upper extremity humerus fracture. Radiology in agreement. CT head negative for any acute intracranial abnormality. Frontal scalp hematoma visualized. CT of the cervical spine without any acute traumatic injury. Chronic changes. CT of the face negative for any acute fracture. and family member were updated of all the results and the plan for discharge home. Ice as needed for swelling. Tylenol as needed for pain. Monitor for falls at the care facility. Patient stable to discharge home. They confirmed understanding. Impression: 1. Mechanical fall 2. Dementia 3. Frontal scalp hematoma 4. Closed head injury 5. Facial contusion Radiography Diagnostic Testing: Clinical Impression(s) from Imaging Studies Brain CT 03/05/25 11:08 IMPRESSION: No acute intracranial abnormalities. Reading Location: [id number] Cervical Spine CT 03/05/25 11:08 IMPRESSION: No acute injury to the cervical spine. Reading Location: [id number] Facial/Sinus 03/05/25 11:08 IMPRESSION: No acute injury to the maxillofacial bones. Reading Location: [id number] Chest X-Ray 03/05/25 11:30 IMPRESSION: Generalized osteopenia. Upon limited visualization, an impacted Fracture of the right humeral head and neck is seen, with interval callus formation noted since the right shoulder study of 12/26/2024. [id number] degenerative changes of the visualized spine noted. No rib fracture is seen. If clinical concern persists, short-term follow-up imaging may be obtained to rule out a currently occult fracture. Right upper quadrant abdominal surgical clips are again seen. The cardiomediastinal silhouette is remarkable for a calcified and tortuous aorta. No evidence of cardiomegaly. Lungs appear clear of acute disease. No pleural effusion or pneumothorax is noted. Reading Location: [address] Discharge Plan Triage Chief Complaint: Fall ED Provider: Frankie Padilla Dx/Rx/DC Orders Clinical Impression: Closed head injury, Contusion of scalp, Contusion of nose, Fall Instructions: ED Facial Contusion, ED Head Injury (Adult), ED Fall Prevention Prescriptions: No Action amlodipine 5 MG tablet 5 mg PO DAILY lovastatin 20 MG tablet 20 mg PO DAILY dicyclomine 20 mg tablet 20 mg PO BID meloxicam 15 mg tablet 15 mg PO DAILY levothyroxine 75 mcg tablet 75 mcg PO DAILY polyethylene glycol 3350 17 gram/dose powder 17 g PO QHS omeprazole 20 mg capsule,delayed release(DR/EC) 20 mg PO DAILY mirtazapine 15 mg tablet 15 mg PO QHS Primary Care Provider: Diallo Ingram Referrals: Diallo Ingram MD [Primary Care Provider, Family Practice] - 3-5 Days Activity Restrictions/Additional Instructions: Monitor for falls. Follow-up with primary care physician. Return back to ED if symptoms change or worsen. Tylenol as needed for pain. Ice for swelling. Print Language: Armenian Disposition Disposition: Home, Self Care
--- NOTE | 2025-03-05 11:30 | RAD_ITS ---
PROCEDURE: CHEST 1 VIEW (PORTABLE) 03/05/2025 REASON FOR EXAM: FALL TECHNIQUE: Frontal view of the chest. COMPARISON: PA and lateral chest of 03/25/2024 and right shoulder study of 12/26/2024. RAD/Chest 1 View (Portable) IMPRESSION: Generalized osteopenia. Upon limited visualization, an impacted Fracture of the right humeral head and neck is seen, with interval callus formation noted since the right shoulder study of 12/26/2024. [id number] degenerative changes of the visualized spine noted. No rib fracture is seen. If clinical concern persists, short-term follow-up imaging may be obtained to r ule out a currently occult fracture. Right upper quadrant abdominal surgical clips are again seen. The cardiomediastinal silhouette is remarkable for a calcified and tortuous aor ta. No evidence of cardiomegaly. Lungs appear clear of acute disease. No pleural effusion or pneumothorax is noted. Reading Location: [id number]
[2025-03-05 12:11] VITALS: PULSE 81; RESP 14; O2SAT 100
--- OUTSIDE RECORDS SUMMARY | 2025-03-05 12:31 | XMS RPT_ITS | CCD ---
Author Organization [facility] Care Team Providers Care Whitewasher Name Role Phone Nataly BALDERRAMA, Dr. Landrum Primary Care Provider [phone] Nataly BALDERRAMA, Dr. Landrum Attending Provider [phone] Nataly BALDERRAMA, Dr. Landrum Referring Provider Nataly BALDERRAMA, Dr. Landrum Primary Care Provider [phone] Diallo English Attending Provider Unavailable Neymar BALDERRAMA, Dr. Escobar Emergency Provider Diallo English Attending Unavailable Nataly, Diallo Primary Care Unavailable Nataly, Diallo Attending Unavailable Nataly, Diallo Primary Care Unavailable Ingram, Diallo Referring Unavailable Nataly, Diallo Attending Unavailable Nataly, Diallo Primary Care Unavailable Nataly, Diallo Attending Unavailable Nataly, Diallo Primary Care Unavailable Natlay, Diallo Referring Unavailable Nataly, Diallo Primary Care Unavailable Joo Bodren Attending Unavailable Shawn Blackmon Attending Unavailable Nataly, Diallo Primary Care Unavailable Allergies Allergy Classification Reported Allergen(s) Allergy Type Date of Onset Reaction(s) Facility (5 sources) Adhesive Tape; Translations: [adhesive tape] Propensity to adverse reactions 0 [facility] (4 sources) Sulfonamides (Antibiotic) Allergy to substance 0 [facility] (1 source) Sulfonamides (Antibiotic) Drug allergy (disorder) 5 [facility] Repository Medications Current Medications Medication Drug Class(es) Dates Sig (Normalized) Sig (Original) amLODIPine 5 mg oral tablet (4 sources) Dihydropyridine Calcium Channel Tayler Start: 09-12-2019 take 1 tablet by mouth once daily Amlodipine 5 MG tablet Active 5 mg PO DAILY September 12, 2019 12:00am dicyclomine hydrochloride 20 mg oral tablet (2 sources) Anticholinergic Start: 03-25-2024 take 1 tablet by mouth twice daily Dicyclomine 20 mg tablet Active 20 mg PO TWICE A DAY March 25, 2024 12:00am Start: 03-25-2024 take 1 tablet by anaya th three times daily Dicyclomine 20 mg tablet Active 20 mg PO THREE TIMES A DAY March 25, 2024 12:00am levothyroxine sodium 0.075 mg oral tablet (6 sources) l-Thyroxine Start: 03-25-2024 take 1 tablet by mouth once daily Levothyroxine 75 mcg tablet Active 75 ug PO DAILY March 25, 2024 12:00am Start: 09-12-2019 End: 03-25-2024 take 1 tablet by mouth once daily Levothyroxine 88 MCG tablet Discontinued 88 ug PO DAILY September 12, 2019 12:00am March 25, 2024 1:34pm lovastatin 20 mg oral tablet (4 sources) HMG-CoA Reductase Inhibitor Start: 09-12-2019 take 1 tablet by mouth once daily Lovastatin 20 MG tablet Active 20 mg PO DAILY September 12, 2019 12:00am meloxicam 15 mg oral tablet (2 sources) Nonsteroidal Anti-inflammatory Drug Start: 03-25-2024 take 1 tablet by mouth once daily Meloxicam 15 mg tablet Active 15 mg PO DAILY March 25, 2024 12:00am mirtazapine 15 mg oral tablet (1 source) Start: 12-26-2024 take 1 tablet by mouth at bedtime Mirtazapine 15 mg tablet Active 15 mg PO AT BEDTIME December 26, 2024 12:00am omeprazole 20 mg delayed release oral capsule (1 source) Proton Pump Inhibitor Start: 12-26-2024 take 1 capsule by mouth once daily Omeprazole 20 mg capsule,delayed release(DR/EC) Active 20 mg PO DAILY December 26, 2024 12:00am polyethylene glycol 3350 10180 mg powder for oral solution (1 source) Osmotic Laxative Start: 12-26-2024 take 17 g by mouth at bedtime Polyethylene Glycol 3350 17 gram/dose powder Active 17 g PO AT BEDTIME December 26, 2024 12:00am Completed/Discontinued Medications Medication Drug Class(es) Dates Sig (Normalized) Sig (Original) benazepril hydrochloride 20 mg / hydroCHLOROthiazide 12.5 mg oral tablet (4 sources) Thiazide Diuretic, Angiotensin Converting Enzyme Inhibitor Start: 09-12-2019 End: 03-25-2024 Benazepril-Hydroc hlorothiazide 1 EACH tablet Discontinued 1 NMA PO DAILY September 12, 2019 12:00am March 25, 2024 1:32pm Start: 09-12-2019 Benazepril-Hyd rochlorothiazide Active 1 EACH PO DAILY September 11, 2019 11:00pm donepezil hydrochloride 10 mg oral tablet (2 sources) Start: 03-25-2024 End: 12-26-2024 take 2 tablets by mouth once daily Donepezil 10 mg tablet Discontinued 20 mg PO DAILY March 25, 2024 12:00am December 26, 2024 7:32am memantine hydrochloride 5 mg oral tablet (2 sources) Q-zrgyke-H-aspart ate Receptor Antagonist Start: 03-25-2024 End: 12-26-2024 take 1 tablet by mouth twice daily Memantine 5 mg tablet Discontinued 5 mg PO TWICE A DAY March 25, 2024 12:00am December 26, 2024 7:32am Problems Active Problems Problem Classification Problem Date Documented Da te Episodic/Chronic Abdominal pain (2 sources) Epigastric pain; Translations: [Epigastric pain] 04-02-2024 Episodic Delirium, dementia, and amnestic and other cognitive disorders (3 sources) Dementia; Translations: [Unspecified dementia without behavioral disturbance] 04-02-2024 Chronic E Codes: Fall (1 source) Fall; Translations: [Unspecified fall, initial encounter] 12-26-2024 Episodic Essential hypertension (1 source) Essential (primary) hypertension; Translations: [Essential (primary) hypertension] Onset: 08-29-2024 Chronic Fracture of upper limb (1 source) Closed fracture of head of humerus; Translations: [Other displaced fracture of upper end of right humerus, initial encounter for closed fracture] 12-26-2024 Episodic Open wounds of head; neck; and trunk (1 source) Laceration of forehead; Translations: [Laceration without foreign body of other part of head, initial encounter] 12-26-2024 Episodic Other circulatory disease (2 sources) H/O: hypertension; Translations: [Personal history of other diseases of the circulatory system] 04-02-2024 Episodic Other fractures (1 source) Fracture of superior pubic ramus; Translations: [Fracture of superior rim of right pubis, initial encounter for closed fracture] 12-26-2024 Episodic Other injuries and conditions due to external causes (1 source) Closed injury of head; Translations: [Unspecified injury of head, initial encounter] 12-26-2024 Episodic Other injuries and conditions due to external causes (1 source) Encounter for examination and observation following other accident; Translations: [Encounter for examination and observation following other accident] Onset: 01-01-2025 Episodic Other nutritional; endocrine; and metabolic disorders (2 sources) H/O: hypothyroidism; Translations: [Personal history of other endocrine, nutritional and metabolic disease] 04-02-2024 Episodic Residual codes; unclassified (1 source) Not for resuscitation; Translations: [Do not resuscitate] 12-26-2024 Episodic Sprains and strains (4 sources) Lumbosacral strain; Translations: [Strain of muscle, fascia and tendon of lower back, initial encounter] 09-13-2019 Episodic Superficial injury; contusion (4 sources) Contusion of hip; Translations: [Contusion of right hip, initial encounter] 09-13-2019 Episodic Thyroid disorders (1 source) Hypothyroidism, unspecified; Translations: [Hypothyroidism, unspecified] Onset: 03-12-2024 Chronic Urinary tract infections (1 source) Urinary tract infection, site not specified; Translations: [Urinary tract infection, site not specified] Onset: 12-28-2024 Episodic Past or Other Problems Problem Classification Problem Date Documented Da te Episodic/Chronic Nonspecific chest pain (1 source) Chest pain, unspecified; Translations: [Chest pain, unspecified] Onset: 04-17-2024 Episodic Other nutritional; endocrine; and metabolic disorders (1 source) Anorexia; Translations: [Anorexia] Onset: 04-23-2024 Episodic Results Test Name Value Interpretation Reference Range Facility Urine Cultureon 12-29-2024 [facility] Klebsiella pneumonia e sp pneum [place] Count <1000 Streptococcus agalactiae (B) Streptococcus agalactiae (B) Klebsiella pneumoniae sp pneum: REACTION Ampicillin Islt GEOVANNA >=32 R Ampicillin+Sulbac Islt GEOVANNA 8 Cefepime Islt GEOVANNA <=0.12 S cefTRIAXone Islt GEOVANNA <=0.25 S Ciprofloxacin Islt GEOVANNA 0.25 S B-Lactamase Extended Susc Islt NEG Gentamicin Islt GEOVANNA <=1 S levoFLOXacin Islt GEOVANNA 0.5 S Meropenem Islt GEOVANNA <=0.25 S Nitrofurantoin Islt GEOVANNA 32 S Pip+Tazo Islt GEOVANNA 16 I TMP SMX Islt GEOVANNA <=20 S Streptococcus agalactiae (B): REACTION Ampicillin Islt GEOVANNA <=0.25 S cefTRIAXone Islt GEOVANNA <=0.12 Clindamycin.induced Susc Islt NEG Linezolid Islt GEOVANNA <=2 S Vancomycin Islt GEOVANNA 0.[address] [facility] Comment on above: Performed By: #### M 100.2200 #### [facility] [address] [place], [place], [address] Bilirubin Test strip Ql (U)O rdered By: Shawn Blackmon on 12-26-2024 Bilirubin Ql (U) Negative Negative [facility] Brain/Head without Contrasto n 12-26-2024 Brain/Head without Contrast [facility] Imaging Services [address] [place], [place] [id number] Brain/Head without Contrast MR#: [id number] Acct: [id number] Name: REYNA SHRESTHA Rep #: [id number] : 1940 F 84 From: Aminta Cameron nd, MD PCP: Dr. Diallo Ingram MD Status: REG ER Study: Brain/Head without Contrast Date of Exam: 12/08 03/04 Exam# [id number] Ordering Dr: Shawn Blackmon MD EXAM: BRAIN/HEAD WITHOUT CONTRAST CLINICAL HISTORY: 84 y/o F with HEAD TRAUMA. COMPARISON: None. TECHNIQUE: Routine CT imaging of the head without IV contrast. Additional multiplanar reformats were obtained. Dose reduction techniques were used including intermediate exposure control (AEC),iterative reconstruction technique, and/or mA and/or KV dose adjustments based on patient's size. FINDINGS: Visualization is limited by motion artifact. Moderate generalized cerebral volume loss with concordant prominence of the ventricles and subarachnoid spaces. Moderate patchy supratentorial white matter hypodensities. No acute intracranial hemorrhage or herniation. The magaña-white matter interfaces are otherwise maintained. The orbits, visualized paranasal sinuses and mastoids are unremarkable. No obvious acute calvarial fracture. Large hematoma/laceration along the right superolateral orbital wall. CT/Brain/Head without Contrast IMPRESSION: 1. No acute intracranial finding. 2. Large hematoma/laceration along the right superolateral orbital wall. Reading Location: [id number] CC: Dr. Shawn Blackmon MD; Dr. Diallo Ingram MD Blocker And Sewer: Signed Normal [facility] Emergency Department Summary on 12-26-2024 Emergency Department Summary [facility] Medical Records Department [address] [place] [address] Emergency Department Summary 12/26/24 MR#: [id number] Acct: [id number] Name: REYNA SHRESTHA Rep #: [id number] : 1940 84 From: Shawn Blackmon MD PCP: Dr. Diallo Ingram MD Status:DEP ER Location: ED HPI HPI - Fall History of Present Illness Chief Complaint: Fall Informant: patient Occured/Mechanism Occurred: Today Usually ambulates: Without assistance Pain/Injury Pain Location: head Narrative Narrative: 84-year-old female history of dementia, hypertension. Currently resides in [facility] with the memory unit. Patient is a very limited informant due to her dementia. She basically says ow. Reportedly patient was found in the hallway on the floor at the [facility]. With contusion to her right forehead and upper eyelid and brow. They believe she fell sometime this morning. She is reportedly not on blood thinners. Prior similar symptoms: No Recent Illness/Hospitalization : [facility] Medical History Anorexia GERD (gastroesophageal reflux disease) HTN (hypertension) Hypothyroidism Alzheimer disease Dementia Home Medications ???Medication ???Instructions ???Recorded ???Last Taken ???Type amlodipine 5 mg tablet 5 mg PO DAILY 09/12/19 03/25/24 Hi story lovastatin 20 mg tablet 20 mg PO DAILY 09/12/19 03/24/24 H istory dicyclomine 20 mg tablet 20 mg PO BID 03/25/24 03/25/24 His tory levothyroxine 75 mcg tablet 75 mcg PO DAILY 03/25/24 03/24/24 History meloxicam 15 mg tablet 15 mg PO DAILY 03/25/24 03/24/24 H istory mirtazapine 15 mg tablet 15 mg PO QHS 12/26/24 Unknown Hist ory omeprazole 20 mg capsule,delayed 20 mg PO DAILY 12/26/24 Unknown Hi story release polyethylene glycol 3350 17 17 g PO QHS 12/26/24 Unknown Histo ry gram/dose oral powder Allergy/AdvReac Type Severity Reaction Status Date / Time Sulfa (Sulfonamide Allergy Rash Verified 12/26/24 07:28 Antibiotics) adhesive tape AdvReac Rash Verified 12/26/24 07:28 Social History Smoking Status: Never smoker ROS ROS ED ROS Narrative Unknown due to patient's dementia. Review of Systems ROS Unobtainable: due to mental condition EXAM Physical Exam Narrative Exam Narrative: 84-year-old female sitting upright in bed. Vital signs are stable afebrile. Currently there is no family present. H EENT exam pupils round reactive light. Her right forehead eyebrow upper lid there is swelling from a contusion there is dried blood but does not appear to be a laceration needs to be repaired. There is no active bleeding. Pupils are equal and symmetrical 2 to 3 mm. Dentition intact. There is no other signs of trauma to her face or scalp. C-spine and neck are nontender. Lungs are clear. Heart regular rhythm rate about 80 no murmur. Chest wall and ribs are nontender. There is no signs of trauma. No bruising or crepitance. Abdomen is soft and nontender. Pelvic girdle is intact. There is no shortening or rotation to either hip. Upper extremities are nontender no deformity. She does not do mural artist strength. Lower extremities are nontender with no deformity. She does do dorsi and plantarflexion. Neurologically she is awake. She will open her eyes. She will follow limited commands. She is a very limited informant. There does not appear to be any focal motor deficits. Const Vital Signs: 12/26/24 07:22 12/26/24 08:21 12/26/24 09:00 Temperature 97.2 F L Temperature Source Axillary Pulse Rate 84 84 86 Respiratory Rate 24 H 16 Blood Pressure 148/74 H 149/88 H 127/98 H Blood Pressure Mean 98 108 107 Pulse Ox 100 98 Oxygen Delivery Method Room Air Room Air 12/26/24 10:00 12/26/24 11:00 Temperature Temperature Source Pulse Rate 75 79 Respiratory Rate 17 Blood Pressure 119/08 L Blood Pressure Mean 45 Pulse Ox 99 Oxygen Delivery Method Room Air Positive well nourished and well developed; Negative for cachectic, contractures or unkempt General Appearance ED: well developed and NAD; Negative for unkempt, cachectic or contractures Nutritional Appearance: Negative for cachectic HEENT Reports normocephalic trauma, contusion, hematoma and tenderness Eyes PERRL and EOMs intact bilaterally General Eye ED: Negative for pale conjunctiva or scleral icterus Neck full ROM and no lymphadenopathy General: Negative for tenderness Chest Wall inspection of chest normal and palpation of chest normal Resp normal respiratory effort, no retractions and clear to auscultation bilaterally Cardio regular rate, regular rhythm, S1 normal heart sound, S2 normal heart sound and no murmurs GI n (more content not included)... Normal [facility] HIP, UNI W/ Pelvis 2-3 Views on 12-26-2024 HIP, UNI W/ Pelvis 2-3 Views [facility] Imaging Services [address] [place] [address] HIP, UNI W/ Pelvis 2-3 Views MR#: [id number] Acct: [id number] Name: REYNA SHRESTHA Rep #: [id number] : 1940 F 84 From: Julianne Perdomo PCP: Dr. Diallo Ingram MD Status: [facility] ER Study: HIP, UNI W/ Pelvis 2-3 Views Date of Exam: Exam# [id number] Ordering Dr: Shawn Blackmon MD PROCEDURE: HIP, UNI W/ PELVIS 2-3 VIEWS 12/26/2024 REASON FOR EXAM: FALL TECHNIQUE: HIP, UNI W/ PELVIS 2-3 VIEWS AP pelvic view was obtained as well as two views of the right hip. COMPARISON: Hip and pelvic study dated 10/17/2023 FINDINGS: AP pelvis and two views of the right hip were obtained and demonstrate diffuse osteopenia of the osseous structures. There are no acute fractures or dislocations. Degenerative changes of the lower lumbar spine are noted. SI joints appear unremarkable. Arthritic changes of the pubic symphysis are noted. 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 Moderate arthritic changes are noted involving the left hip. There is no fracture or dislocation of the left hip. RAD/HIP, UNI W/ Pelvis 2-3 Views IMPRESSION: The right prosthetic hip device appears to be in satisfactory position without evidence of fracture or loosening. No acute fractures or dislocations are seen. Degenerative changes lower lumbar spine. Arthritic changes of the pubic symphysis. 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 Reading Location: [facility] CC: Dr. Shawn Blackmon MD; Dr. Diallo Ingram MD Blocker And Sewer: Signed Normal [facility] Ketones Test strip Ql (U)Ord ered By: Shawn Blackmon on 12-26-2024 Ketones Ql (U) 50 mg/dl High Negative [facility] Microscopic analysis of urin e for red blood cells (RBC)Ordered By: Shawn Blackmon on 12-26-2024 Microscopic analysis of urine for red blood cells (RBC) 0-5 SEEN /hpf 0-5 [facility] Mucus LM Ql (Urine sed)Order ed By: Shawn Blackmon on 12-26-2024 Mucus Ql (Urine sed) 0 SEEN /hpf [facility] Nitrite Test strip Ql (U)Ord ered By: Shawn Blackmon on 12-26-2024 Nitrite Ql (U) Negative Negative [facility] Protein Test strip Ql (U)Ord ered By: Shawn Blackmon on 12-26-2024 Protein Ql (U) 15 mg/dl High Negative [facility] Shoulder min 2 Viewson 12-26 Shoulder min 2 Views [facility] Imaging Services [address] [place] [address] Shoulder min 2 Views MR#: [id number] Acct: [id number] Name: REYNA SHRESTHA Rep #: [id number] : 1940 F 84 From: Julianne Perdomo PCP: Dr. Diallo Ingram MD Status: REG ER Study: Shoulder min 2 Views Date of Exam: 12/26/24 Exam# [id number] Ordering Dr: Shawn Blackmon MD PROCEDURE: SHOULDER MIN 2 VIEWS 12/26/2024 REASON FOR EXAM: FALL TECHNIQUE: SHOULDER MIN 2 VIEWS COMPARISON: None FINDINGS: Two views of the right shoulder were obtained and demonstrate diffuse osteopenia of the osseous structures. There is a comminuted fracture involving the right humeral head/ neck region. There is slight displacement of the distal portion of the humerus superiorly by approximately 11 mm. There is slight displacement of the right humeral shaft medially. There is decreased space between the acromion and the right humeral head. Very mild arthritic changes are seen involving the right acromioclavicular joint and glenohumeral joint. No obvious displaced right rib fractures are seen. There is no lung contusion or pneumothorax. The visualized right lung is clear. RAD/Shoulder min 2 Views IMPRESSION: Comminuted displaced fracture of the right humeral head/ neck region as described above. 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 Reading Location: [id number] CC: Dr. Shawn Blackmon MD; Dr. Diallo Ingram MD Blocker And Sewer: Signed Normal [facility] Squamous epithelial cells de tection in urine sediment by light microscopyOrdered By: Shawn Blackmon on 12-26-2024 Epithelial cells.squamous LM Ql (Urine sed) 0-5 SEEN /hpf 5-10 [facility] Urinalysis, Completeon 12-26 EPI,SQUAMOUS 0-5 SEEN Normal 5-10 [facility] Comment on above: Order Comment: SARMAD CTOR TO SPECIFY Performed By: #### L 400.0001 ####[facility] [address] [place], [place], [id number] RBC 0-5 SEEN Normal 0-5 [facility] Comment on above: Order Comment: SARMAD CTOR TO SPECIFY Performed By: #### L 400.0001 ####[facility] [address] [place], [place], [id number] WBC 10-25 SEEN Normal 0-5 [facility] Comment on above: Order Comment: SARMAD CTOR TO SPECIFY Performed By: #### L 400.0001 ####[facility] [address] [place], [address] BACTERIA 0 SEEN Normal None Seen [facility] Comment on above: Order Comment: SAMRAD CTOR TO SPECIFY Performed By: #### L 400.0001 ####[facility] [address] [place], [address] Mucus Ql (Urine sed) 0 SEEN Normal [facility] Comment on above: Order Comment: SARMAD CTOR TO SPECIFY Performed By: #### L 400.0001 ####[facility] [address] [place], [address] Urine clarityOrdered By: Blake Blackmon on 12-26-2024 Clarity (U) Clear Clear [facility] Urine color determinationOrd ered By: Shawn Blackmon on 12-26-2024 Color (U) Yellow Yellow [facility] Urine glucose detectionOrder ed By: Shawn Blackmon on 12-26-2024 Glucose Ql (U) Normal mg/dl Normal [facility] Urine leukocyte esterase det ection by dipstickOrdered By: Shawn Blackmon on 12-26-2024 Leukocyte esterase Test strip Ql (U) 500 /ul High Negative [facility] Urine pHOrdered By: Shawn marquez on 12-26-2024 pH (U) 7.0 [pH] 5.0 - 8.0 [facility] Urine sediment bacteria coun t by microscopy (number/high power field)Ordered By: Shawn Blackmon on 12-26-2024 Bacteria LM.HPF (Urine sed) [#/Area] 0 /[HPF] None Seen [facility] Urine specific gravity measu rementOrdered By: Shawn Blackmon on 12-26-2024 Specific gravity (U) [Rel density] 1.010 1.002-1.030 [facility] Urine urobilinogen measureme ntOrdered By: Shawn Blackmon on 12-26-2024 Urobilinogen Ql (U) Normal mg/dl Normal [facility] White blood cell countOrdere d By: Shawn Blackmon on 12-26-2024 White blood cell count 10-25 SEEN /hpf 0-5 [facility] Bilirubin Test strip Ql (U)O rdered By: Diallo Ingram on 12-07-2024 Bilirubin Ql (U) Negative Negative [facility] Ketones Test strip Ql (U)Ord ered By: Diallo Ingram on 12-07-2024 Ketones Ql (U) 5 mg/dl High Negative [facility] Microscopic analysis of urin e for red blood cells (RBC)Ordered By: Diallo Ingram on 12-07-2024 Microscopic analysis of urine for red blood cells (RBC) 0-5 SEEN /hpf 0-5 [facility] Mucus LM Ql (Urine sed)Order ed By: Diallo Ingram on 12-07-2024 Mucus Ql (Urine sed) 0 SEEN /hpf [facility] Nitrite Test strip Ql (U)Ord ered By: Diallo Ingram on 12-07-2024 Nitrite Ql (U) Negative Negative [facility] Protein Test strip Ql (U)Ord ered By: Diallo Ingram on 12-07-2024 Protein Ql (U) 15 mg/dl High Negative [facility] Squamous epithelial cells de tection in urine sediment by light microscopyOrdered By: Diallo Ingram on 12-07-2024 Epithelial cells.squamous LM Ql (Urine sed) 0-5 SEEN /hpf 5-10 [facility] Urine clarityOrdered By: Savita Ingram on 12-07-2024 Clarity (U) Sl. Cloudy Clear [facility] Urine color determinationOrd ered By: Diallo Ingram on 12-07-2024 Color (U) Yellow Yellow [facility] Urine cultureOrdered By: Savita Ingram on 12-07-2024 Bacteria identified Cx Nom (U) Culture exhibits no growth. [facility] Urine glucose detectionOrder ed By: Diallo Ingram on 12-07-2024 Glucose Ql (U) Normal mg/dl Normal [facility] Urine leukocyte esterase det ection by dipstickOrdered By: Diallo Ingram on 12-07-2024 Leukocyte esterase Test strip Ql (U) 500 /ul High Negative [facility] Urine pHOrdered By: Diallo burrows on 12-07-2024 pH (U) 6.0 [pH] 5.0 - 8.0 [facility] Urine sediment bacteria coun t by microscopy (number/high power field)Ordered By: Diallo Ingram on 12-07-2024 Bacteria LM.HPF (Urine sed) [#/Area] 0 /[HPF] None Seen [facility] Urine specific gravity measu rementOrdered By: Diallo Ingram on 12-07-2024 Specific gravity (U) [Rel density] 1.020 1.002-1.030 [facility] Urine urobilinogen measureme ntOrdered By: Diallo Ingram on 12-07-2024 Urobilinogen Ql (U) Normal mg/dl Normal [facility] White blood cell countOrdere d By: Diallo Ingram on 12-07-2024 White blood cell count 5-10 SEEN /hpf 0-5 [facility] Anion gap in Serum or Plasma Ordered By: Diallo Ingram on 08-24-2024 Anion gap [Moles/Vol] 10 mmol/L 5-15 [facility] BUN/creatinine ratioOrdered By: Diallo Ingram on 08-24-2024 Urea nitrogen/Creatinine [Mass ratio] 22.2 mg/mg High 10-20 [facility] Bilirubin, totalOrdered By: Diallo Ingram on 08-24-2024 Bilirubin [Mass/Vol] 0.39 mg/dL 0.00-1.30 [facility] Calculated very low density lipoprotein (VLDL) cholesterol measurementOrdered By: Diallo Ingram on 08-24-2024 VLDL Cholesterol 33 mg/dL 5-40 [facility] Carbon dioxide, total [Moles /volume] in Central venous bloodOrdered By: Diallo Ingram on 08-24-2024 CO2 [Moles/Vol] 27.7 mmol/L 21.0-32.0 [facility] Chloride assayOrdered By: Matthew Ingram on 08-24-2024 Chloride [Moles/Vol] 104 mmol/L 98-108 [facility] Comprehensive Metabolic Prof ilon 08-24-2024 Albumin [Mass/Vol] 4.2 g/dL Normal 3.4-4.8 [facility] Comment on above: Performed By: #### L 500.4053, L500.4101, L501.47063, L501.9540, L506.0400 #### [facility] [place], [address] Albumin/Globulin [Mass ratio] 1.2 {ratio} Normal 0.9-2.4 [facility] Comment on above: Performed By: #### L 500.4050, L500.4100, L501.54710, L501.9520, L506.0400 #### [facility] [address] [place], [address] ALK PHOS 80 U/L Normal 35-104 [facility] Comment on above: Performed By: #### L 500.4050, L500.4100, L501.47207, L501.9520, L506.0400 #### [facility] [address] [place], [address] ALT [Catalytic activity/Vol] 13 U/L Normal <=34 [facility] Comment on above: Performed By: #### L 500.4050, L500.4100, L501.73929, L501.9520, L506.0400 #### [facility] [address] [place], [address] AST [Catalytic activity/Vol] 22 U/L Normal <=31 [facility] Comment on above: Performed By: #### L 500.4050, L500.4100, L501.25113, L501.9520, L506.0400 #### [facility] [address] [place], [address] Bilirubin [Mass/Vol] 0.39 mg/dL Normal 0.00-1.30 [facility] Comment on above: Performed By: #### L 500.4050, L500.4100, L501.32488, L501.9520, L506.0400 #### [facility] [address] [place], [address] BUN/CRE 22.2 RATIO High 10-20 [facility] Comment on above: Performed By: #### L 500.4050, L500.4100, L501.20052, L501.9520, L506.0400 #### [facility] [address] [place], [address] Calcium [Mass/Vol] 9.7 mg/dL Normal 7.6-11.0 [facility] Comment on above: Performed By: #### L 500.4050, L500.4100, L501.35449, L501.9520, L506.0400 #### [facility] [address] [place], [address] Chloride [Moles/Vol] 104 mmol/L Normal 98-108 [facility] Comment on above: Performed By: #### L 500.4050, L500.4100, L501.40862, L501.9520, L506.0400 #### [facility] [address] [place], [address] CO2 [Moles/Vol] 27.7 mmol/L Normal 21.0-32.0 [facility] Comment on above: Performed By: #### L 500.4050, L500.4100, L501.77791, L501.9520, L506.0400 #### [facility] [address] [place], [address] Creatinine [Mass/Vol] 0.95 mg/dL Normal 0.70-1.20 [facility] Comment on above: Performed By: #### L 500.4050, L500.4100, L501.57800, L501.9520, L506.0400 #### [facility] [address] [place], [address] GAP 10 Normal 5-15 [facility] Comment on above: Performed By: #### L 500.4050, L500.4100, L501.45483, L501.9520, L506.0400 #### [facility] [address] [place], [address] GFR/1.73 sq M.predicted among non-blacks MDRD (S/P/Bld) [Vol rate/Area] 60 mL/min/{1.73_m2} Normal >60 [facility] Comment on above: Result Comment: mL/m in/1.73m2 CKD-EPI Creatinine Equation (2020) Performed By: #### L 500.4050, L500.4100, L501.16572, L501.9520, L506.0400 #### [facility] [address] [place], [address] Globulin (S) [Mass/Vol] 3.4 g/dL Normal 2.2-4.2 [facility] Comment on above: Performed By: #### L 500.4050, L500.4100, L501.97492, L501.9520, L506.0400 #### [facility] [address] [place], [address] Glucose [Mass/Vol] 125 mg/dL High 70-99 [facility] Comment on above: Performed By: #### L 500.4050, L500.4100, L501.48487, L501.9520, L506.0400 #### [facility] [address] [place], [address] Potassium [Moles/Vol] 4.0 mmol/L Normal 3.3-5.1 [facility] Comment on above: Performed By: #### L 500.4050, L500.4100, L501.53465, L501.9520, L506.0400 #### [facility] [address] [place], [address] Sodium [Moles/Vol] 141 mmol/L Normal 133-145 [facility] Comment on above: Performed By: #### L 500.4050, L500.4100, L501.42281, L501.9520, L506.0400 #### [facility] [address] [place], [address] T PROT 7.5 g/dL Normal 5.9-8.4 [facility] Comment on above: Performed By: #### L 500.4050, L500.4100, L501.01936, L501.9520, L506.0400 #### [facility] [address] [place], [address] Urea nitrogen [Mass/Vol] 21 mg/dL High 4-19 [facility] Comment on above: Performed By: #### L 500.4050, L500.4100, L501.41135, L501.9520, L506.0400 #### [facility] [address] [place], [address] Free T3on 08-24-2024 Free T3 [Mass/Vol] 2.4 pg/mL Normal 2.18-3.98 [facility] Comment on above: Performed By: #### L 500.4050, L500.4100, L501.11377, L501.9520, L506.0400 #### [facility] [address] [place], [address] Free H2Ndngcnj By: Diallo harper on 08-24-2024 Free Triiodothyronine (T3) pg/dL 2.4 pg/mL 2.18-3.98 [facility] GFR/1.73 sq M.predicted ciara g non-blacks MDRD (S/P/Bld) [Vol rate/Area]Ordered By: Diallo Ingram on 08-24-2024 Estimated GFR (MDRD) Non-Af Amer [address] >[address] [facility] Comment on above: mL/min/1.73m2 CKD-EP I Creatinine Equation (2020) LDL calc ser/plasOrdered By: Diallo Ingram on 08-24-2024 LDL Cholesterol, Calculated 90 mg/dL [facility] Comment on above: Ikmqkmcbqd=111-407 m g/dL & Higher Zpmq=741 mg/dL or greater Laboratory - Chemistry and C hemistry - challengeOrdered By: Diallo Ingram on 08-24-2024 AST [Catalytic activity/Vol] 22 U/L <32 [facility] Lipid Profileon 08-24-2024 CHOL:HDL 3.[address] [facility] Comment on above: Performed By: #### L 500.4050, L500.4100, L501.87302, L501.9520, L506.0400 ####[facility] [address] [place], [address] Cholesterol [Mass/Vol] 184 mg/dL Normal <=200 [facility] Comment on above: Result Comment: Chol esterol level, Desirable <200 mg/dL Borderline high cholesterol 200-239 mg/dL High cholesterol >=240 mg/dL Recommendations of the NCEP Adult Treatment Panel for the following risk-cutoff thresholds for the [place] population. Performed By: #### L 500.4050, L500.4100, L501.32069, L501.9520, L506.0400 ####[facility] [address] [place], [address] Cholesterol in HDL [Mass/Vol] 61 mg/dL Normal [facility] Comment on above: Result Comment: Trish onal Cholesterol Education Program (NCEP) guidelines: <40 mg/dL: Low HDL-cholesterol (major risk factor for CHD) >= 60 mg/dL: High HDL-cholesterol (negative risk factor for CHD) HDL-cholesterol is affected by a number of factors, e.g. smoking, exercise, hormones, sex and age. Performed By: #### L 500.4050, L500.4100, L501.54184, L501.9520, L506.0400 ####[facility] [address] [place], [address] Cholesterol in LDL [Mass/Vol] 90 mg/dL Normal [facility] Comment on above: Result Comment: Bord ytptcc=688-462 mg/dL Higher Gqpy=101 mg/dL or greater Performed By: #### L 500.4050, L500.4100, L501.43230, L501.9520, L506.0400 ####[facility] [address] [place], [address] Cholesterol in VLDL [Mass/Vol] 33 mg/dL Normal 5-40 [facility] Comment on above: Performed By: #### L 500.4050, L500.4100, L501.01847, L501.9520, L506.0400 ####[facility] [address] [place], [address] Triglyceride [Mass/Vol] 164 mg/dL Normal [facility] Comment on above: Result Comment: The drugs N-Acetylcysteine and Metamizole may falsely depress this assay. Normal range: <150 mg/dL Borderline High: 150-199 mg/dL High: 200-499 mg/dL Very High: >500 mg/dL Performed By: #### L 500.4050, L500.4100, L501.59723, L501.9520, L506.0400 ####[facility] [address] [place], [address] Potassium (Unsp spec) [Mass/ Vol]Ordered By: Diallo Ingram on 08-24-2024 Potassium [Moles/Vol] 4.0 mmol/L 3.3-5.1 [facility] Screening total cholesterol/ high density lipoprotein (HDL) cholesterol ratioOrdered By: Diallo Ingram on 08-24-2024 Cholesterol.total/Gillian sterol in HDL [Mass ratio] 3.03 {ratio} [facility] Serum creatinine measurement (mass/volume)Ordered By: Diallo Ingram on 08-24-2024 Creatinine [Mass/Vol] 0.95 mg/dL 0.70-1.20 [facility] Serum globulin measurementOr dered By: Diallo Ingram on 08-24-2024 Globulin (S) [Mass/Vol] 3.4 g/dL 2.2-4.2 [facility] Serum glucose measurement (m ass/volume)Ordered By: Diallo Ingram on 08-24-2024 Glucose [Mass/Vol] 125 mg/dL High 70-99 [facility] Serum or plasma alanine rosales otransferase (ALT) measurementOrdered By: Diallo Ingram on 08-24-2024 ALT [Catalytic activity/Vol] 13 U/L <35 [facility] Serum or plasma albumin flory urement (mass/volume)Ordered By: Diallo Ingram on 08-24-2024 Albumin [Mass/Vol] 4.2 g/dL 3.4-4.8 [facility] Serum or plasma albumin/glob ulin mass ratioOrdered By: Diallo Ingram on 08-24-2024 Albumin/Globulin [Mass ratio] 1.2 {ratio} 0.9-2.4 [facility] Serum or plasma alkaline andres sphatase measurementOrdered By: Diallo Ingram on 08-24-2024 ALP [Catalytic activity/Vol] 80 U/L 35-104 [facility] Serum or plasma calcium flory urement (mass/volume)Ordered By: Diallo Ingram on 08-24-2024 Calcium [Mass/Vol] 9.7 mg/dL 7.6-11.0 [facility] Serum or plasma cholesterol in HDL measurement (mass/volume)Ordered By: Diallo Ingram on 08-24-2024 Cholesterol in HDL [Mass/Vol] 61 mg/dL >40 [facility] Comment on above: National Cholesterol Education Program (NCEP) guidelines:<40 mg/dL: Low HDL-cholesterol (major risk factor for CHD)>= 60 mg/dL: High HDL-cholesterol (negative risk factor for CHD)HDL-cholesterol is affected by a number of factors, e.g. smoking, exercise, hormones, sex and age. Serum or plasma cholesterol measurement (mass/volume)Ordered By: Diallo Ingram on 08-24-2024 Cholesterol [Mass/Vol] 184 mg/dL <201 [facility] Comment on above: Cholesterol level, D esirable <200 mg/dLBorderline high cholesterol 200-239 mg/dLHigh cholesterol >=240 mg/dLRecommendations of the NCEP Adult Treatment Panel for the following risk-cutoff thresholds for the [place] population. Serum or plasma urea nitroge n measurement (mass/volume)Ordered By: Diallo Inrgam on 08-24-2024 Urea nitrogen [Mass/Vol] 21 mg/dL High 4-19 [facility] Sodium levelOrdered By: Diallo Ingram on 08-24-2024 Sodium [Moles/Vol] 141 mmol/L 133-145 [facility] T4 Free Directon 08-24-2024 T4 FREE DIRECT 1.10 ng/dL Normal 0.76-1.46 [facility] Comment on above: Performed By: #### L 500.4050, L500.4100, L501.89919, L501.9520, L506.0400 #### [facility] [address] [facility] [place], [place], [address] T4 freeOrdered By: Diallo harper on 08-24-2024 Free T4 [Mass/Vol] 1.10 ng/dL 0.76-1.46 [facility] TSH DL <= 0.005 mIU/L QnOrde red By: Diallo Ingram on 08-24-2024 Thyroid Stimulating Hormone (TSH) 1.910 uIU/mL 0.300-4.200 [facility] Thyroid Stim Hormone (TSH)on 08-24-2024 TSH 1.910 uIU/mL Normal 0.300-4.200 [facility] Comment on above: Performed By: #### L 500.4050, L500.4100, L501.32317, L501.9520, L506.0400 #### [facility] [address] [facility] [place], [place], [address] Total proteinOrdered By: Savita Ingram on 08-24-2024 Protein [Mass/Vol] 7.5 g/dL 5.9-8.4 [facility] Triglycerides measurementOrd ered By: Diallo Ingram on 08-24-2024 Triglyceride [Mass/Vol] 164 mg/dL <199 [facility] Comment on above: The drugs N-Acetylcy steine and Metamizole may falsely depress this assay. Normal range: <150 mg/dLBorderline High: 150-199 mg/dLHigh: 200-499 mg/dLVery High: >500 mg/dL Comprehensive Metabolic Prof ilon 03-27-2024 Albumin [Mass/Vol] 3.5 g/dL Normal 3.2-5.0 [facility] Comment on above: Performed By: #### L 500.4050 ####[facility] [address] [place], [address] Albumin/Globulin [Mass ratio] 0.9 {ratio} Normal 0.9-2.4 [facility] Comment on above: Performed By: #### L 500.4050 ####[facility] [address] [place], [address] ALK P 68 U/L Normal 45-117 [facility] Comment on above: Performed By: #### L 500.4050 ####[facility] [address] [place], [address] ALT [Catalytic activity/Vol] 19 U/L Normal 13-56 [facility] Comment on above: Performed By: #### L 500.4050 ####[facility] [address] [place], [address] AST [Catalytic activity/Vol] 21 U/L Normal 15-37 [facility] Comment on above: Performed By: #### L 500.4050 ####[facility] [address] [place], [address] Bilirubin [Mass/Vol] 0.50 mg/dL Normal 0.20-1.00 [facility] Comment on above: Result Comment: For patients on eltrombopag therapy, use of Dimension [place] TBIL is not recommended. Performed By: #### L 500.4050 ####[facility] [address] [place], [address] BUN/CRE 19.0 RATIO Normal 10-20 [facility] Comment on above: Performed By: #### L 500.4050 ####[facility] [address] [place], [address] CA,Total 9.5 mg/dL Normal 8.5-10.1 [facility] Comment on above: Performed By: #### L 500.4050 ####[facility] [address] [place], [address] Chloride [Moles/Vol] 106 mmol/L Normal 98-107 [facility] Comment on above: Performed By: #### L 500.4050 ####[facility] [address] [place], [address] CO2 [Moles/Vol] 30.0 mmol/L Normal 21.0-32.0 [facility] Comment on above: Performed By: #### L 500.4050 ####[facility] [address] [place], [address] Creatinine [Mass/Vol] 1.00 mg/dL Normal 0.55-1.02 [facility] Comment on above: Result Comment: The validity of the calculated GFR GFRAA in patients over 70 years has not been determined. Clinical correlation is essential. Performed By: #### L 500.4050 ####[facility] [address] [place], [address] EST GFR - AA 68 mL/min Normal >60 [facility] Comment on above: Result Comment: Afri can [place] GFR Calc Performed By: #### L 500.4050 ####[facility] [address] [place], [address] GAP 3 Low 5-15 [facility] Comment on above: Performed By: #### L 500.4050 ####[facility] [address] [place], [address] GFR/1.73 sq M.predicted among non-blacks MDRD (S/P/Bld) [Vol rate/Area] 57 mL/min/{1.73_m2} Low >60 [facility] Comment on above: Result Comment: Non- GFR Calc Performed By: #### L 500.4050 ####[facility] [address] [place], [address] Globulin (S) [Mass/Vol] 4.0 g/dL Normal 2.2-4.2 [facility] Comment on above: Performed By: #### L 500.4050 ####[facility] [address] [place], [address] Glucose [Mass/Vol] 111 mg/dL High 74-106 [facility] Comment on above: Result Comment: Fast ing Glucose result from 100 to 125 mg/dL suggests IMPAIRED HOMEOSTASIS per A.D.A. criteria. Performed By: #### L 500.4050 ####[facility] [address] [place], [address] Potassium [Moles/Vol] 3.9 mmol/L Normal 3.5-5.1 [facility] Comment on above: Performed By: #### L 500.4050 ####[facility] [address] [place], [address] Sodium [Moles/Vol] 139 mmol/L Normal 136-145 [facility] Comment on above: Performed By: #### L 500.4050 ####[facility] [address] [place], [address] T PROT 7.5 g/dL Normal 6.4-8.2 [facility] Comment on above: Performed By: #### L 500.4050 ####[facility] [address] [place], [address] Urea nitrogen [Mass/Vol] 19 mg/dL High 7-18 [facility] Comment on above: Performed By: #### L 500.4050 ####[facility] [address] [place], [address] 12 Lead EKGon 03-25-2024 12 Lead EKG [facility] Cardi[facility] Services [address] [place] [address] 12 Lead EKG 03/25/24 1347 MR#: [id number] Acct: [id number] Name: REYNA SHRESTHA Rep #: [id number] : 1940 83 From: Juno Zaragoza MD [...] block Abnormal ECG Confirmed by Juno Zaragoza ([id number]), videotape editor ROB PARKER ([id number]) on 03/27/2024 1:29:04 PM Referred By: Confirmed By:Juno Zaragoza 03/27/24 1329 Date Juno Zaragoza MD CC: Dr. Diallo Ingram MD; Dr. Joo Borden MD Signed Normal [facility] Chest PA and Lateralon 03-25 Chest PA and Lateral [facility] Imaging Services [address] [place] [address] Chest PA and Lateral MR#: [id number] Acct: [id number] Name: REYNA SHRESTHA Rep #: [id number] : 1940 F 83 From: Layton Chase PCP: Dr. Diallo Ingram MD Status: REG ER Study: Chest PA and Lateral Date of Exam: 03/25/24 Exam# [id number] Ordering [place]: [place] [id number] INDICATION: Chest/epigastric pain EXAMINATION/TECHNIQUE: X-RAY - XR [...] Diallo Ingram MD; Dr. Joo Borden MD [employer]: Signed Normal [facility] Emergency Department Summary on 03-25-2024 Emergency Department Summary [facility] Medical Records Department [address] [place] [address] Emergency Department Summary 03/25/24 MR#: [id number] Acct: [id number] Name: REYNA SHRESTHA Rep #: [id number] : 1940 83 From: Joo Borden MD [...] history. Prior Similar Symptoms: - (Unknown) Recent Illness/Hospitalization : No CVD Risk Factors: Positive for Hypertension and Hypercholesterolemia; Negative for Diabetes or Smoking PE Risk Factors: Positive for - (Unknown) TAD Risk Factors: Positive for Hypertension [facility] Medical History (Updated 03/25/24 @ 16:08 by [...] Data Attes (more content not included)... Normal [facility] L501.4020on 03-25-2024 TROPONIN-I HS 5 pg/mL Normal 3.0-54.0 [facility] Comment on above: Result Comment: Plea se Note: New Test Units and Gender Specific Reference Ranges. For more information see Policy Stat Procedure [place] High Sensitivity Troponin (TNIH) and attachments. Performed By: #### L 501.4020 ####[facility] [address] [place], [place], [address] L501.5425on 03-25-2024 TROPONIN-I HS 6 pg/mL Normal 3.0-54.0 [facility] Comment on above: Order Comment: 1Y Result Comment: Plea se Note: New Test Units and Gender Specific Reference Ranges. For more information see Policy Stat Procedure [place] High Sensitivity Troponin (TNIH) and attachments. Performed By: #### L 501.5463 ####[facility] [address] [place], [address] Basic Metabolic Profile (BMP )on 02-19-2024 BUN/CRE 20.0 RATIO Normal 10-20 [facility] Comment on above: Performed By: #### L 506.0400, L500.2500, L500.4100, L501.45131, L501.9520 ####[facility] [address] [place], [address] CA,Total 9.5 mg/dL Normal 8.5-10.1 [facility] Comment on above: Performed By: #### L 506.0400, L500.2500, L500.4100, L501.87898, L501.9520 ####[facility] [address] [place], [address] Chloride [Moles/Vol] 104 mmol/L Normal 98-107 [facility] Comment on above: Performed By: #### L 506.0400, L500.2500, L500.4100, L501.46936, L501.9520 ####[facility] [address] [place], [address] CO2 [Moles/Vol] 30.0 mmol/L Normal 21.0-32.0 [facility] Comment on above: Performed By: #### L 506.0400, L500.2500, L500.4100, L501.45546, L501.9520 ####[facility] [address] [place], [address] Creatinine [Mass/Vol] 1.00 mg/dL Normal 0.55-1.02 [facility] Comment on above: Result Comment: The validity of the calculated GFR GFRAA in patients over 70 years has not been determined. Clinical correlation is essential. Performed By: #### L 506.0400, L500.2500, L500.4100, L501.11274, L501.9520 ####[facility] [address] [place], [address] EST GFR - AA 68 mL/min Normal >60 [facility] Comment on above: Result Comment: Afri can [place] GFR Calc Performed By: #### L 506.0400, L500.2500, L500.4100, L501.64752, L501.9520 ####[facility] [address] [place], [address] GAP 5 Normal 5-15 [facility] Comment on above: Performed By: #### L 506.0400, L500.2500, L500.4100, L501.02043, L501.9520 ####[facility] [address] [place], [address] GFR/1.73 sq M.predicted among non-blacks MDRD (S/P/Bld) [Vol rate/Area] 57 mL/min/{1.73_m2} Low >60 [facility] Comment on above: Result Comment: Non- GFR Calc Performed By: #### L 506.0400, L500.2500, L500.4100, L501.05753, L501.9520 ####[facility] [address] [place], [address] Glucose [Mass/Vol] 111 mg/dL High 74-106 [facility] Comment on above: Result Comment: Fast ing Glucose result from 100 to 125 mg/dL suggests IMPAIRED HOMEOSTASIS per A.D.A. criteria. Performed By: #### L 506.0400, L500.2500, L500.4100, L501.04055, L501.9520 ####[facility] [address] [place], [address] Potassium [Moles/Vol] 4.2 mmol/L Normal 3.5-5.1 [facility] Comment on above: Performed By: #### L 506.0400, L500.2500, L500.4100, L501.57246, L501.9520 ####[facility] [address] [place], [address] Sodium [Moles/Vol] 139 mmol/L Normal 136-145 [facility] Comment on above: Performed By: #### L 506.0400, L500.2500, L500.4100, L501.37794, L501.9520 ####[facility] [address] [place], [address] Urea nitrogen [Mass/Vol] 20 mg/dL High 7-18 [facility] Comment on above: Performed By: #### L 506.0400, L500.2500, L500.4100, L501.92688, L501.9520 ####[facility] [address] [place], [address] Free T3on 02-19-2024 Free T3 [Mass/Vol] 2.0 pg/mL Low 2.18-3.98 [facility] Comment on above: Performed By: #### L 506.0400, L500.2500, L500.4100, L501.62948, L501.9520 ####[facility] [address] [place], [address] Lipid Profileon 02-19-2024 Cholesterol [Mass/Vol] 156 mg/dL Normal 200 [facility] Comment on above: Result Comment: <200 mg/dL Desirable 200-240 mg/dL Borderline >240 mg/dL High Risk Performed By: #### L 506.0400, L500.2500, L500.4100, L501.98189, L501.9520 ####[facility] [address] [place], [address] Cholesterol in HDL [Mass/Vol] 52 mg/dL Normal [facility] Comment on above: Result Comment: The drugs N-Acetylcysteine and Metamizole may falsely depress this assay. Reference Range HDL <40 mg/dL Low HDL Cholesterol HDL >or= 60 mg/dL High HDL Cholesterol Performed By: #### L 506.0400, L500.2500, L500.4100, L501.95585, L501.9520 ####[facility] [address] [place], [address] Cholesterol in LDL [Mass/Vol] 54 mg/dL Normal 0-130 [facility] Comment on above: Performed By: #### L 506.0400, L500.2500, L500.4100, L501.25855, L501.9520 ####[facility] [address] [place], [address] Cholesterol in VLDL [Mass/Vol] 50 mg/dL High 5-40 [facility] Comment on above: Performed By: #### L 506.0400, L500.2500, L500.4100, L501.33335, L501.9520 ####[facility] [address] [place], [address] Triglyceride [Mass/Vol] 251 mg/dL High [facility] Comment on above: Result Comment: The drugs N-Acetylcysteine and Metamizole may falsely depress this assay. Serum Triglycerides Reference Interval Normal <150 mg/dL Borderline high 150 - 199 mg/dL High 200 - 499 mg/dL Very High > or = 500 mg/dL Performed By: #### L 506.0400, L500.2500, L500.4100, L501.65147, L501.9520 ####[facility] [address] [place], [address] T4 Free Directon 02-19-2024 T4 FREE DIRECT 0.96 ng/dL Normal 0.76-1.46 [facility] Comment on above: Performed By: #### L 506.0400, L500.2500, L500.4100, L501.15339, L501.9520 ####[facility] [address] [place], [address] Thyroid Stim Hormone (TSH)on 02-19-2024 TSH 1.450 uIU/mL Normal 0.358-3.740 [facility] Comment on above: Performed By: #### L 506.0400, L500.2500, L500.4100, L501.27993, L501.9567 ####[facility] [address] [place], [address] Basophil percentageOrdered B y: Diallo Ingram on 07-18-2023 Bilirubin [Mass/Vol] 0.50 mg/dL 0.20-1.00 [facility] Comment on above: For patients on eltr ombopag therapy, use of Dimension [place] TBIL is not recommended. Chloride [Moles/Vol] 103 mmol/L 98-107 [facility] Cholesterol [Mass/Vol] 150 mg/dL <200 [facility] Comment on above: <200 mg/dL Desirable 200-240 mg/dL Borderline >240 mg/dL High Risk Glucose [Mass/Vol] 109 mg/dL 74-106 [facility] Comment on above: Fasting Glucose resu lt from 100 to 125 mg/dL suggests IMPAIRED HOMEOSTASIS per A.D.A. criteria. Potassium [Moles/Vol] 4.3 mmol/L 3.5-5.1 [facility] Protein [Mass/Vol] 7.7 g/dL 6.4-8.2 [facility] Sodium [Moles/Vol] 137 mmol/L 136-145 [facility] Triglyceride [Mass/Vol] 189 mg/dL <199 [facility] Comment on above: The drugs N-Acetylcy steine and Metamizole may falsely depress this assay.Serum Triglycerides Reference Interval Normal <150 mg/dL Borderline high 150 - 199 mg/dL High 200 - 499 mg/dL Very High > or = 500 mg/dL Laboratory - Chemistry and C hemistry - challengeOrdered By: Diallo Ingram on 07-18-2023 Albumin/Globulin [Mass ratio] 1.0 {ratio} 0.9-2.4 [facility] ALP [Catalytic activity/Vol] 64 U/L 45-117 [facility] ALT [Catalytic activity/Vol] 23 U/L 13-56 [facility] Cholesterol in HDL [Mass/Vol] 61 mg/dL >40 [facility] Comment on above: The drugs N-Acetylcy steine and Metamizole may falsely depress this assay. Reference Range HDL <40 mg/dL Low HDL Cholesterol HDL >or= 60 mg/dL High HDL Cholesterol Cholesterol in LDL [Mass/Vol] 51 mg/dL 0-130 [facility] CO2 [Moles/Vol] 31.0 mmol/L 21.0-32.0 [facility] Globulin (S) [Mass/Vol] 3.9 g/dL 2.2-4.2 [facility] Urea nitrogen/Creatinine [Mass ratio] 21.2 mg/mg 10-20 [facility] No Panel InformationOrdered By: Diallo Ingram on 07-18-2023 Estimated GFR (MDRD) Amer 69 mL/min >60 [facility] Comment on above: GFR Calc Estimated GFR (MDRD) Non-Af Amer 57 mL/min >60 [facility] Comment on above: Non- GFR Calc Free Triiodothyronine (T3) pg/dL 1.8 pg/mL 2.18-3.98 [facility] VLDL Cholesterol 38 mg/dL 5-40 [facility] Serum or plasma calcium flory urement (mass/volume)Ordered By: Diallo Ingram on 07-18-2023 Calcium [Mass/Vol] 9.4 mg/dL 8.5-10.1 [facility] Serum or plasma creatinine m easurement (mass/volume)Ordered By: Diallo Ingram on 07-18-2023 Creatinine [Mass/Vol] 0.99 mg/dL 0.55-1.02 [facility] Comment on above: The validity of the calculated GFR & GFRAA in patients over 70 years has not been determined. Clinical correlation is essential. Serum or plasma thyroid stim ulating hormone (TSH) measurement (units/volume)Ordered By: Diallo Ingram on 07-18-2023 TSH Qn 4.33 uIU/mL 0.358-3.74 [facility] Serum or plasma urea nitroge n measurement (mass/volume)Ordered By: Diallo Ingram on 07-18-2023 Urea nitrogen [Mass/Vol] 21 mg/dL 7-18 [facility] Thin prep Papanicolaou smear with manual screeningOrdered By: Diallo Ingram on 07-18-2023 Thin prep Papanicolaou smear with manual screening 3.8 g/dL 3.2-5.0 [facility] Thin prep Papanicolaou smear with manual screening 19 U/L 15-37 [facility] Thin prep Papanicolaou smear with manual screening 3 5-15 [facility] Thin prep Papanicolaou smear with manual screening 0.84 ng/dL 0.76-1.46 [facility] Basophil percentageOrdered B y: Dr. Ingram on 11-22-2022 Chloride [Moles/Vol] 107 mmol/L 98-107 [facility] Cholesterol [Mass/Vol] 123 mg/dL <200 [facility] Comment on above: <200 mg/dL Desirable 200-240 mg/dL Borderline >240 mg/dL High Risk Glucose [Mass/Vol] 115 mg/dL 74-106 [facility] Comment on above: Fasting Glucose resu lt from 100 to 125 mg/dL suggests IMPAIRED HOMEOSTASIS per A.D.A. criteria. Potassium [Moles/Vol] 4.1 mmol/L 3.5-5.1 [facility] Sodium [Moles/Vol] 140 mmol/L 136-145 [facility] Triglyceride [Mass/Vol] 67 mg/dL <199 [facility] Comment on above: The drugs N-Acetylcy steine and Metamizole may falsely depress this assay.Serum Triglycerides Reference Interval Normal <150 mg/dL Borderline high 150 - 199 mg/dL High 200 - 499 mg/dL Very High > or = 500 mg/dL Laboratory - Chemistry and C hemistry - challengeOrdered By: Dr. Ingram on 11-22-2022 CO2 [Moles/Vol] 27.0 mmol/L 21.0-32.0 [facility] Free T4 [Mass/Vol] 1.80 ng/dL 0.76-1.46 [facility] Urea nitrogen/Creatinine [Mass ratio] 26.5 mg/mg 10-20 [facility] No Panel InformationOrdered By: Dr. Ingram on 11-22-2022 Estimated GFR (MDRD) Amer 90 mL/min >60 [facility] Comment on above: GFR Calc Estimated GFR (MDRD) Non-Af Amer 74 mL/min >60 [facility] Comment on above: Non- GFR Calc Free Triiodothyronine (T3) pg/dL 2.9 pg/mL 2.18-3.98 [facility] Thyroid Stimulating Hormone (TSH) < 0.01 uIU/mL 0.358-3.74 [facility] Serum or plasma calcium flory urement (mass/volume)Ordered By: Dr. Ingram on 11-22-2022 Calcium [Mass/Vol] 9.7 mg/dL 8.5-10.1 [facility] Serum or plasma cholesterol in HDL measurement (mass/volume)Ordered By: Dr. Ingram on 11-22-2022 Cholesterol in HDL [Mass/Vol] 58 mg/dL >40 [facility] Comment on above: The drugs N-Acetylcy steine and Metamizole may falsely depress this assay. Reference Range HDL <40 mg/dL Low HDL Cholesterol HDL >or= 60 mg/dL High HDL Cholesterol Serum or plasma cholesterol in VLDL measurement (mass/volume)Ordered By: Dr. Ingram on 11-22-2022 Cholesterol in VLDL [Mass/Vol] 13 mg/dL 5-40 [facility] Serum or plasma creatinine m easurement (mass/volume)Ordered By: Dr. Ingram on 11-22-2022 Creatinine [Mass/Vol] 0.79 mg/dL 0.55-1.02 [facility] Comment on above: The validity of the calculated GFR & GFRAA in patients over 70 years has not been determined. Clinical correlation is essential. Serum or plasma low density lipoprotein (LDL) cholesterol measurement (mass/volume)Ordered By: Dr. Ingram on 11-22-2022 Cholesterol in LDL [Mass/Vol] 52 mg/dL 0-130 [facility] Serum or plasma urea nitroge n measurement (mass/volume)Ordered By: Dr. Ingram on 11-22-2022 Urea nitrogen [Mass/Vol] 21 mg/dL 7-18 [facility] Thin prep Papanicolaou smear with manual screeningOrdered By: Dr. Ingram on 11-22-2022 Thin prep Papanicolaou smear with manual screening 6 5-15 [facility] Vital Signs Date Time Vital Sign Value Performing Clinician Faci lity 12-26-2024 16:00-0400 Diastolic blood pressure 85 mm[Hg] Dr. Diallo Ingram MD Work Phone: [facility] 12-26-2024 16:00-0400 Heart rate 91 /min Dr. Diallo Ingram MD Work Phone: [facility] 12-26-2024 16:00-0400 Respiratory rate 16 /min Dr. Diallo Ingram MD Work Phone: [facility] 12-26-2024 16:00-0400 SaO2% (BldA) [Mass fraction] 96 % Dr. Diallo Ingram MD Work Phone: [facility] 12-26-2024 16:00-0400 Systolic blood pressure 114 mm[Hg] Dr. Diallo Ingram MD Work Phone: [facility] 12-26-2024 12:15-0400 Body temperature 98.6 [degF] Dr. Diallo Ingram MD Work Phone: [facility] 12-26-2024 07:22-0400 Body height 157.[address] Diallo Ingram MD Work Phone: [facility] 12-26-2024 07:22-0400 Body mass index (BMI) [Ratio] 30.2 kg/m2 Dr. Diallo Ingram MD Work Phone: [facility] 12-26-2024 07:22-0400 Body weight 74.[address] Diallo Ingram MD Work Phone: [facility] Encounters Encounter Date Encounter Type Care Provider Facility Start: 12-26-2024 End: 12-26-2024 Emergency department patient visit Dr. Diallo Ingram MD Work Phone: -Emergency Department Work Phone: Start: 12-07-2024 ambulatory Diallo Jacobsi ty:[facility] Start: 12-07-2024 Registered Referred Diallo Ingram -[facility] Work Phone: Start: 08-24-2024 End: 08-24-[address] Diallo Ingram MD Work Phone: [facility] Work Phone: Start: 08-24-2024 End: 08-24-[address] Diallo Ingram MD -[facility] Work Phone: Start: 08-24-2024 End: 08-24-2024 ambulatory Diallo Ingram Facility:[facility] Start: 03-27-2024 End: 03-27-2024 ambulatory Diallo Ingram Facility:[facility] Start: 03-25-2024 End: 03-25-2024 Emergency department patient visit Diallo Ingram Facility:[facility] Start: 02-19-2024 End: 02-19-2024 ambulatory Sal[place] Nataly Facility:[facility] Start: 07-18-2023 End: 07-18-[address] [facility] Work Phone: Start: 07-18-2023 End: 07-18-[address] [facility] Start: 11-22-2022 End: 11-22-[address] [facility] Work Phone: Start: 11-22-2022 End: 11-22-2022 Patient encounter procedure [facility] Procedures Date Procedure Procedure Detail Performing Clinician Start: 12-26-2024 Urnls dip stick/tabl et reagent auto microscopy Dr. Diallo Ingram MD Work Phone: Start: 12-26-2024 Plain x-ray of pelvi s and lower extremity Dr. Diallo Ingram MD Work Phone: Start: 12-26-2024 Plain X-ray of shoulder Dr. Diallo Ingram MD Work Phone: Start: 12-26-2024 CT of head without contrast Dr. Diallo Ingram MD Work Phone: Start: 12-07-[address] Diallo Ingram MD Work Phone: Start: 12-07-2024 Urnls dip stick/tabl et reagent auto microscopy Dr. Diallo Ingram MD Work Phone: Plan of Treatment Date Care Activity Detail Author Start: 12-26-2024 Bacteria identified in Urine by Culture Urine Culture [facility] Start: 12-26-2024 [facility] Start: 12-26-2024 [facility] Patient Education ED Head Injury (Adult) ED Fracture, Shoulder [facility] Work Phone: Urine culture [facility] Payers Date Payer Category Payer Self-pay [id number] 2024 Unknown [id number] 2007 Medicare [id number] Unknown [id number] 2.16.8 [id number] Unknown [id number] 2.16.8 [id number] Unknown [id number] 2.16.8 [id number] Unknown [id number] 2.16.8 [id number] Unknown [id number] 2.16.8 [id number] Unknown [id number] 2.16.8 [id number] Social History Date Type Detail Facility Start: 09-12-2019 End: 09-12-2019 Tobacco smoking status NHIS Unknown if ever smoked [facility] Start: 1940 Sex Assigned At Female [facility] Start: 03-25-2024 End: 12-26-2024 Tobacco smoking status NHIS Never smoked tobacco (finding) [facility] Start: 08-29-2024 Sex Female (finding) [facility] Radiology Diagnostic study note 12-26-2024 Note Date & Type Note Facility 12-26-2024 Radiology Diagnostic study note [facility] Imaging Services [address] [place], [place] [id number] Shoulder min 2 Views MR#: [id number] Acct: [id number] Name: REYNA SHRESTHA Rep #: [id number] : 1940 F 84 From: Oracio Rios DO PCP: Dr. Diallo Ingram MD Status: REG E R Study:Shoulder min 2 Views Date of Exam: 12/26/24 Exam# [id number] Ordering Dr: Talya Blackmon MD PROCEDURE: SHOULDER MIN 2 VIEWS 12/26/2024 REASON FOR EXAM: FALL TECHNIQUE: SHOULDER MIN 2 VIEWS COMPARISON: None FINDINGS: Two views of the right shoulder were obtained and demonstrate diffuse osteopeniaof the osseous structures. There is a comminuted fracture involving the right humeral head/ neck region. There is slight displacement of the distal portion of the humerus superiorly by approximately 11 mm. There is slight displacement of the right humeral shaft medially. There is decreased space between the acromion and the right humeral head. Very mild arthritic changes are seen involving the right acromioclavicular jointand glenohumeral joint. No obvious displaced right rib fractures are seen. There is no lung contusion or pneumothorax. The visualized right lung is clear. RAD/Shoulder min 2 Views IMPRESSION: Comminuted displaced fracture of the right humeral head/ neck region as described above. 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 Reading Location: [facility] CC: Dr. Shawn Blackmon MD; Dr. Diallo Ingram MD ~ [employer]: Signed [facility] Radiology Diagnostic study note 12-26-2024 Note Date & Type Note Facility 12-26-2024 Radiology Diagnostic study note [facility] Imaging Services [address] [place] [address] HIP, UNI W/ Pelvis 2-3 Views MR#: [id number] Acct: [id number] Name: REYNA SHRESTHA Rep #: [id number] : 1940 F 84 From: Oracio Rios DO PCP: Dr. Diallo Ingram MD Status: REG E R Study:HIP, UNI W/ Pelvis 2-3 Views Date of Ex am: 12/26/24 Exam# [id number] Ordering Dr: Talya Blackmon MD PROCEDURE: HIP, UNI W/ PELVIS 2-3 VIEWS 12/26/2024 REASON FOR EXAM: FALL TECHNIQUE: HIP, UNI W/ PELVIS 2-3 VIEWS AP pelvic view was obtained as well as two views ofthe right hip. COMPARISON: Hip and pelvic study dated 10/17/2023 FINDINGS: AP pelvis and two views of the right hip were obtained and demonstrate diffuse osteopenia of the osseous structures. There are no acute fractures or dislocations. Degenerative changes of the lower lumbar spine are noted. SI joints appear unremarkable. Arthritic changes of the pubic symphysis are noted. 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 Moderate arthritic changes are noted involving the left hip. There is no fracture or dislocation of the left hip. RAD/HIP, UNI W/ Pelvis 2-3 Views IMPRESSION: The right prosthetic hip device appears to be in satisfactory position without evidence of fracture or loosening. No acute fractures or dislocations are seen. Degenerative changes lower lumbar spine. Arthritic changes of the pubic symphysis. 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 Reading Location: [id number] CC: Dr. Shawn Blackmon MD; Dr. Diallo Ingram MD ~ [employer]: Signed [facility] Radiology Diagnostic study note 12-26-2024 Note Date & Type Note Facility 12-26-2024 Radiology Diagnostic study note [facility] Imaging Services [address] [place] [address] Brain/Head without Contrast MR#: [id number] Acct: [id number] Name: REYNA SHRESTHA Rep #: [id number] : 1940 F 84 From: Yuni Palmer MD PCP: Dr. Diallo Ingram MD Status: REG E R Study:Brain/Head without Contrast Date of Exa m: 12/26/24 Exam# [id number] Ordering Dr: Talya Blackmon MD EXAM: BRAIN/HEAD WITHOUT CONTRAST CLINICAL HISTORY: 84 y/o F with HEAD TRAUMA. COMPARISON: None. TECHNIQUE: Routine CT imaging of the head without IV contrast. Additional multiplanar reformats were obtained. Dose reduction techniques were used including intermediate exposure control (AEC),iterative reconstruction technique, and/or mA and/or KV dose adjustments based on patient's size. FINDINGS: Visualization is limited by motion artifact. Moderate generalized cerebral volume loss with concordant prominence of the ventricles and subarachnoid spaces. Moderate patchy supratentorial white matter hypodensities. No acute intracranial hemorrhage or herniation. The magaña-white matter interfaces are otherwise maintained. The orbits, visualized paranasal sinuses and mastoids are unremarkable. No obvious acute calvarial fracture. Large hematoma/laceration along the right superolateral orbital wall. CT/Brain/Head without Contrast IMPRESSION: 1. No acute intracranial finding. 2. Large hematoma/laceration along the right superolateral orbital wall. Reading Location: [facility] CC: Dr. Shawn Blackmon MD; Dr. Diallo Ingram MD ~ [employer]: Signed [facility] Evaluation note Note Date & Type Note Facility Evaluation note No assessment information availa ble [facility] Work Phone: Hospital Discharge instructions Note Date & Type Note Facility Hospital Discharge instructions Additional Instructions Ice to the forehead contusion and swelling. There was a mild laceration to her right eyebrow area. That was Dermabond glued. Tylenol for any pain. Right humeral head fracture. Sling. Possible right superior pubic rami fracture. No treatment. Follow-up with Dr. Diallo Ingram. [facility] Work Phone: Reason for referral (narrative) Note Date & Type Note Facility Reason for referral (narrative) No reason for referral information available [facility] Work Phone: Advance Directives No Advanced Directives Records Found Advance Directive Response Recorded Date/ Time Living Will Yes September 12, 2019 2:31pm Power of Rf Test Engineer Yes September 11 0 2:31pm Advance Directive Response Recorded Date/ Time Living Will Yes September 12, 2019 1:31pm Power of Rf Test Engineer Yes September 11 1:31pm Advance Directive Response Recorded Date/ Time Do you have a Healthcare Power of Rf Test Engineer? Yes December 26, 2024 7:26am Chief Complaint and Reason for Visit Chief Complaint Admit Date August 24, 2024 7:1 7am Chief Complaint Admit Date fallDecember 26, 2024 7:21 am Summary Purpose Family History No Family History [...] August 24, 2024 End: August 24, 2024 Team Status: Active Member Role/Relationship Status Dates Dr. Diallo Ingram MD Primary Care Provider Active Team Status: Active Member Role/Relationship Status Dates Dr. Diallo Ingram MD Primary Care Provider Active Start: December 07, 2024 Diallo FERNÁNDEZ Attending Provider Active Start : December 07, 2024 Team Status: Inactive Member Role/Relationship Status Dates Dr. Diallo Ingram MD Primary Care Provider Active Start: December 26, 2024 End: December 26, 2024 Dr. Shawn Blackmon MD Emergency Provider Active S tart: December 26, 2024 End: December 26, 2024 Goals (unrecognized section and content) Goals may be documented in a n alternate sectionGoals may be documented in an alternate sectionGoals may be documented in an alternate sectionGoals may be documented in an alternate section INFORMATION SOURCE (unrecogn ized section and content) DATE CREATED AUTHOR 01/02/2025 [facility] FOR RECORDS PERTAINING TO PATIENTS WHO ARE [...] BE BASED ON THE PRIMARY CLINICAL RECORDS. [facility] [employer] [facility]. provides no warranty or guarantee of the accuracy or completeness of information in this document.
--- NOTE | 2025-03-05 15:09 | ED.RN ---
Nurse to nurse given to Cuca at [facility].
[2025-03-05 15:30] VITALS: BP 93/68; PULSE 79; RESP 20; TEMP 36.1; O2SAT 99
[2025-03-05 16:00] VITALS: BP 125/102; PULSE 90; RESP 16; O2SAT 96
== END 2025-03-05 16:52 | disposition home or self-care (01) ==
PROVIDERS: Emergency Provider Surgery; PCP Family Medicine; Visit Provider Surgery
DX: S00.03XA Contusion of scalp, initial encounter (principal); F02.80 Dementia in other diseases classified elsewhere, unspecified severity, without behavioral disturbance, psychotic disturbance, mood disturbance, and anxiety; G30.9 Alzheimer's disease, unspecified; S00.33XA Contusion of nose, initial encounter; W05.0XXA Fall from non-moving wheelchair, initial encounter; Y92.129 Unspecified place in nursing home as the place of occurrence of the external cause; I10 Essential (primary) hypertension; E03.9 Hypothyroidism, unspecified; K21.9 Gastro-esophageal reflux disease without esophagitis; R53.1 Weakness; Z79.890 Hormone replacement therapy; Z79.899 Other long term (current) drug therapy
CPT/HCPCS: 70450; 70486; 71045; 72125; 96374; 96376; 99284